=== PATIENT | female | born 1940 | race Caucasian/White ===

== ENCOUNTER 2016-04-12 13:09 | Outpatient (CLI) | payer MEDICARE, OTHER | END 2016-04-12 13:10 | disposition home or self-care (01) | DX: R42 Dizziness and giddiness (principal); J30.9 Allergic rhinitis, unspecified ==

== ENCOUNTER 2016-05-06 14:40 | Outpatient (CLI) | payer MEDICARE, OTHER | END 2016-05-06 14:41 | disposition home or self-care (01) | DX: G47.33 Obstructive sleep apnea (adult) (pediatric) (principal) | CPT/HCPCS: 99214; G0463 ==

== ENCOUNTER 2016-07-16 16:44 | Emergency (ER) | payer MEDICARE, OTHER ==
--- NOTE | 2016-07-16 17:20 | ED Physician Documentation ---
PD HPI FOCAL NEURO - Stated complaint Stated Complaint: STROKE LIKE SYMPTOMS - Chief complaint Chief Complaint: Neuro - History obtained from History obtained from: Patient - History of Present Illness Timing - onset: How many days ago (about 10 days, estimate as she does not recall an abrupt onset of the symptoms, so not sure the beginning date.) Timing - details: Gradual onset (she noted weakness with lifting her leg, sucha s going up steps or putting her pants on, but did not feel it weak for walking per se. She also felt some weakness in left arm but not to point of dropping items. Still able to use utensils.), Still present Time of symptom onset unknown: Time of onset unknown (about 10 days ago) Severity of deficit: Mild Weakness: Face, Arm, Leg, Left Associated symptoms: No: Headache, Syncope, Head injury, Neck pain Contributing factors: negative: Anticoagulated, Atrial fibrillation Baseline status: positive: A&OX3, ambulatory, indep Similar symptoms before: Has not had sx before Recently seen: Not recently seen Review of Systems Constitutional: denies: Fever, Chills Ears: denies: Drainage/discharge, Tinnitus/ringing Nose: denies: Rhinorrhea / runny nose, Congestion Throat: denies: Sore throat Cardiac: denies: Chest pain / pressure, Palpitations Respiratory: reports: Cough. denies: Dyspnea, Wheezing GI: denies: Abdominal Pain, Nausea, Vomiting, Diarrhea : denies: Dysuria, Frequency Skin: denies: Rash, Lesions Neurologic: reports: Focal weakness. denies: Generalized weakness, Altered mental status, Headache, Head injury PD PAST MEDICAL HISTORY - Past Medical History Past Medical History: Yes Cardiovascular: High cholesterol Neuro: Headache/migraine HEENT: Glaucoma Psych: Depression - Past Surgical History Past Surgical History: Yes HEENT: Cataracts - Present Medications Home Medications: Ambulatory Orders Medication Instructions Recorded Confirmed Cetirizine HCl [Zyrtec] 10 mg PO DAILY 10/22/12 07/16/16 Simvastatin [Zocor] 40 mg PO QPM 10/22/12 07/16/16 Zolpidem [Ambien] 5 mg PO HS 10/22/12 07/16/16 Escitalopram [Lexapro] 20 mg DAILY 07/16/16 07/16/16 Montelukast [Singulair] 10 mg DAILY 07/16/16 07/16/16 Tolterodine Tartrate [Tolterodine 4 mg PO DAILY 07/16/16 07/16/16 Tartrate ER] - Allergies Allergies/Adverse Reactions: Allergies Allergy/AdvReac Type Severity Reaction Status Date / Time iodine Allergy Respiratory Verified 10/22/12 13:36 milk Allergy Unknown Verified 07/16/16 16:53 shellfish derived Allergy Respiratory Verified 07/16/16 16:53 acetaminophen [From Percocet] AdvReac Emesis Verified 07/16/16 16:53 oxycodone HCl * AdvReac Emesis Verified 07/16/16 16:53 [From Percocet] - Social History Does the pt smoke?: No Smoking Status: Never smoker Does the pt drink ETOH?: Yes Does the pt have substance abuse?: No - Family History Family history: reports: Non contributory - POLST Patient has POLST: No PD ED PE NORMAL - Vitals Vital signs reviewed: Yes - General General: Alert and oriented X 3, No acute distress, Well developed/nourished - HEENT HEENT: Ears normal, Pharynx benign, Other (left sided mild facial weakness not involving forehead though. She can close left eye but not tightly. 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 ) - Neck Neck: Supple, no meningeal sign, No adenopathy - Cardiac Cardiac: RRR, No murmur - Respiratory Respiratory: Clear bilaterally - Abdomen Abdomen: Soft, Non tender - Back Back: No CVA TTP - Derm Derm: Normal color, Warm and dry - Extremities Extremities: No deformity, No tenderness to palpate, Normal ROM s pain, No edema , No calf tenderness / cord - Neuro Neuro: Alert and oriented X 3, No sensory deficit, Normal speech, Other (motor deficit lef face and some for pushing left leg, but seems normal for just simple dorsi/plantarflexion. ) NIHSS - Level of Consciousness Level of consciousness: (0) Alert, Keenly responsive LOC Questions: (0) Answers both Q's correct LOC Commands: (0) Performs both correctly - Gaze Best Gaze: (0) Normal - Visual Visual: (0) No loss - Facial Palsy Facial Palsy: (2) Partial paralysis - Motor Arms (both separate) Motor Arm (right): (0) No drift Motor Arm (left): (0) No drift - Motor Legs (both separate) Motor Leg (right): (0) No drift Motor Leg (left): (1) Drift - Limb Ataxia Limb Ataxia: (0) Absent - Sensory Sensory: (0) Normal - Best Language Best Language: (0) No aphasia - Dysarthria Dysarthria: (0) Normal - Extinction and Inattention (formally neg Extinction and inattention: (0) No abnormality - Total Score/Results Total Score/Result: 3 Results - Vitals Vitals: Vital Signs - 24 hr 07/16/16 07/16/16 07/16/16 16:46 17:30 19:09 Temperature 36.9 C Heart Rate 72 68 62 Respiratory 18 18 18 Rate Blood Pressure 139/73 H 125/74 122/67 O2 Saturation 98 99 99 Oxygen O2 Source Room air - Labs Labs: Laboratory Tests 07/16/16 07/16/16 07/16/16 17:45 17:45 17:45 WBC 7.9 RBC 4.73 Hgb 13.6 Hct 40.6 MCV 85.9 MCH 28.8 MCHC 33.5 RDW 13.5 Plt Count 184 MPV 8.7 Neut # 5.2 Lymph # 1.9 Turner # 0.5 Eos # 0.2 Baso # 0.0 Absolute Nucleated RBC 0.01 Nucleated RBCs 0.1 ESR 8 Sodium 141 Potassium 3.7 Chloride 104 Carbon Dioxide 30 Anion Gap 7.0 BUN 17 Creatinine 0.8 Estimated GFR (MDRD) 70 L Glucose 109 H Calcium 9.3 Magnesium 2.3 Total Bilirubin 0.3 AST 22 ALT 21 Alkaline Phosphatase 65 Total Creatine Kinase 142 Total Protein 6.6 L Albumin 4.0 Globulin 2.6 Albumin/Globulin Ratio 1.5 Lipase 27 - Rads (name of study) head CT Radiology: Prelim report reviewed (no acute findings. ) PD MEDICAL DECISION MAKING - ED course Complexity details: reviewed results, re-evaluated patient (her CT is okay and she is allergic to Iodine so could not get angio. I think MRI would be good to eval for lacunar infarcts, MS, other process, but not available right now. Given duration of her symptoms and normal CT, I feel she is stable enough, and she would prefer to go home. Shared decision process and came up with plan for her. ), considered differential (seems stroke-like. Howevethe CT does not show acute CVA, tumor, bleed. Good for now, but MRI is not available this time. Still consider smaller lacunar infarct or alternative such as MS. ), d/w patient Departure - Departure Disposition: 01 Home, Self Care Clinical Impression: Left-sided weakness Condition: Stable Record reviewed to determine appropriate education?: Yes Instructions: ED Weakness UKO, ED Stroke Completed Follow-Up: JOSE FENG [Primary Care Provider] - Comments: Drink adequate fluids. Take a baby aspirin 81 mg daily. Follow up with your Primary tomorrow morning 11:[address] scan and labs do not show obviously bad causes for the symptoms. However the symptoms would still be suspicious for more focal processes such as a small (lacunar) stroke or MS among other things. I feel an MRI would be good to evaluate for those. I would not expect your symptoms to change much in the next day or two (since have been the same for week or more). However, return to ER immediately if worsening or new symptoms. Otherwise follow up with your PMD tomorrow's appointment and see if she can arrange an outpatient MRI in the next few days. If not, can always return to the ER for re-assessment. Discharge Date/Time: 07/16/16 19:10
[2016-07-16] MEDS ORDERED: SODIUM CHLORIDE 0.9% 1,000 ML IV ONE (17:38)
[2016-07-16 17:53] LABS: BASOPHILS % (AUTO) 0.6 %; EOSINOPHILS # (AUTO) 0.2 10^3/uL (0.0-0.7); EOSINOPHILS % (AUTO) 2.4 %; HCT - HEMATOCRIT 40.6 % (37.0-47.0); HGB - HEMOGLOBIN 13.6 g/dL (12.0-16.0); LYMPHOCYTES # (AUTO) 1.9 10^3/uL (1.5-3.5); LYMPHOCYTES % (AUTO) 24.1 %; MEAN CORPUSCULAR HEMOGLOBIN 28.8 pg (27.0-31.0); MEAN CORPUSCULAR HGB CONC 33.5 g/dL (32.0-36.0); MEAN CORPUSCULAR VOLUME 85.9 fL (81.0-99.0); MEAN PLATELET VOLUME 8.7 fL (7.9-10.8); MONOCYTES # (AUTO) 0.5 10^3/uL (0.0-1.0); MONOCYTES % (AUTO) 6.5 %; NEUTROPHILS # (AUTO) 5.2 10^3/uL (1.5-6.6); NEUTROPHILS % (AUTO) 66.4 %; NUCLEATED RED BLOOD CELLS AUTO 0.1 /100WBC; RED BLOOD COUNT 4.73 10^6/uL (4.20-5.40); RED CELL DISTRIBUTION WIDTH 13.5 % (12.0-15.0); UNCORRECTED WHITE BLOOD COUNT 7.9 x10^3/uL; WHITE BLOOD COUNT 7.9 x10^3/uL (4.8-10.8)
[2016-07-16 18:04] LABS: ALBUMIN/GLOBULIN RATIO 1.5 (1.0-2.2); BILIRUBIN,TOTAL 0.3 mg/dL (0.2-1.0); CALCIUM 9.3 mg/dL (8.5-10.3); CREATININE 0.8 mg/dL (0.4-1.0); MAGNESIUM 2.3 mg/dL (1.7-2.8); POTASSIUM 3.7 mmol/L (3.5-5.0); TOTAL PROTEIN 6.6 g/dL (6.7-8.2)
--- NOTE | 2016-07-16 18:13 | CT Preliminary Report ---
Exam: CT Head W/O IMPRESSION: Negative nonenhanced head CT. [facility] SITE ID: [id number]
--- NOTE | 2016-07-16 18:16 | CT Report ---
EXAM: CT HEAD EXAM DATE: 07/16/2016 06:00 PM. CLINICAL HISTORY: Left weakness for 1-2 weeks. COMPARISON: 12/02/2012. TECHNIQUE: Multiaxial CT images were obtained from the foramen magnum to the vertex. IV contrast: Non e. Reformats: Coronal. In accordance with CT protocol optimization, one or more of the following dose reduction techniques w ere utilized for this exam: automated exposure control, adjustment of mA and/or KV based on patient s ize, or use of iterative reconstructive technique. FINDINGS: Parenchyma: No intraparenchymal hemorrhage. No evidence of mass, midline shift, or CT findings of inf arction. Tolentino-white differentiation is distinct. Extraaxial Spaces: Normal for age. No subdural or epidural collections identified. Ventricles: Normal in size and position. Sinuses: Imaged paranasal sinuses, orbits, and mastoids show no significant abnormality. Bones: No evidence of fracture or calvarial defect. Other: None. IMPRESSION: Negative nonenhanced head CT. [facility] Referring Provider Line: [phone] SITE ID: [id number]
[2016-07-16] MEDS ORDERED: ASPIRIN CHEW 81 MG TABLET PO STA (18:48)
[2016-07-16] MEDS ORDERED: ASPIRIN CHEW 81 MG TABLET ONE (19:02)
[2016-07-16 19:10] VITALS: BP 122/67
== END 2016-07-16 19:10 | disposition home or self-care (01) ==
LOC: ED 16:44
DX: M62.81 Muscle weakness (generalized) (principal); R29.810 Facial weakness; Z91.041 Radiographic dye allergy status
CPT/HCPCS: 36415; 70450; 80053; 82550; 83690; 83735; 85025; 85651; 93010; 99283; 99284; A9270

== ENCOUNTER 2016-07-22 09:32 | Outpatient (CLI) | payer MEDICARE, OTHER | END 2016-07-22 09:33 | disposition home or self-care (01) | LOC: SC 09:32 | PROVIDERS: ATTEND Nurse Practitioner Family | DX: G47.33 Obstructive sleep apnea (adult) (pediatric) (principal) | CPT/HCPCS: 99214; G0463; 99212 ==

== ENCOUNTER 2016-08-19 09:41 | Outpatient (CLI) | payer MEDICARE, OTHER ==
[2016-08-19] MEDS ORDERED: GADOBUTROL 7.5 MMOL/7.5 ML VIAL IVP ONE (10:49)
--- NOTE | 2016-08-19 13:31 | MRI Report ---
EXAM MRA BRAIN EXAM DATE: 08/19/2016 10:18 AM. CLINICAL HISTORY: Facial weakness, muscle weakness. Gradual onset of left-sided weakness. COMPARISON: MRI of the brain 08/19/2016. CT scan of the head 07/16/2016. MRI and MRA of the brain . TECHNIQUE: Multiplanar, multisequence MRA sequences of the brain were performed. Other: None. Post-pr ocessing: Multiplanar 3D MIP reconstructions. IV Contrast: None. FINDINGS: RIGHT Internal Carotid (ICA): No aneurysm, stenosis or anomaly. Middle Cerebral (MCA): No aneurysm, stenosis or anomaly. Anterior Cerebral (LARON): No aneurysm, stenosis or anomaly. Posterior Cerebral (COLOR ARTIST): No aneurysm, stenosis or anomaly. Near origin is seen. Posterior Communicating (P-COM): No aneurysm, stenosis or anomaly. Vertebral: Small in caliber. Terminates as the right PICA. No aneurysm, stenosis or anomaly in the vi sualized upper vertebral artery. LEFT Internal Carotid (ICA): No aneurysm, stenosis or anomaly. Middle Cerebral (MCA): No aneurysm, stenosis or anomaly. Anterior Cerebral (LARON): No aneurysm, stenosis or anomaly. Posterior Cerebral (COLOR ARTIST): No aneurysm, stenosis or anomaly. Near origin is seen. Posterior Communicating (P-COM): No aneurysm, stenosis or anomaly. Vertebral: Dominant, forming the basilar artery. No aneurysm, stenosis or anomaly in the visualized u pper vertebral artery. The PICA is unremarkable. MIDLINE Anterior Communicating (A-COM): No aneurysm, stenosis or anomaly. Basilar artery: No aneurysm, stenosis or anomaly. Small in caliber. P1 segment at the basilar tip dem onstrates moderate hypoplasia on the right and marked hypoplasia on the left. Bilateral AICA and supe rior cerebellar arteries are unremarkable. Other: None. IMPRESSION: 1. Unremarkable brain MRA. No stenoses or aneurysms. 2. Small caliber vertebrobasilar system. Prominent P-COM is seen bilaterally with near origin o f COLOR ARTIST. 3. Left vertebral artery is dominant forming the basilar artery. 4. Right vertebral artery is small in caliber terminating as the right PICA. [facility] Referring Provider Line: [phone] SITE ID: [id number]
--- NOTE | 2016-08-19 13:31 | MRI Report ---
EXAM: MRI BRAIN WITHOUT AND WITH CONTRAST EXAM DATE: 08/19/2016 10:53 AM. CLINICAL HISTORY: Facial weakness, muscle weakness. Gradual onset of left-sided weakness. COMPARISON: MRA of the brain 08/19/2016. CT scan of the head 07/16/2016, 12/02/2012. MRI of the brain 06/22/2006. TECHNIQUE: Multiplanar, multisequence T1-weighted and fluid-sensitive MR sequences of the brain were performed. Sequences optimized for routine evaluation. Other: None. Without and with IV Contrast: 6 c c Gadavist. FINDINGS: Brain Volume: Normal for age. Parenchyma/Dura: No masses, infarcts, or hemorrhage. Minimal punctate periventricular T2/FLAIR bright white matter signal is seen about the lateral ventricles with small focus in the left frontal zheng radiata. This is not an unexpected finding in a patient of age 76 years. No cortical signal abnormal ity. No abnormal enhancement. Ventricles/Cisterns: No hydrocephalus. No abnormal extra-axial fluid collection or hemorrhage. Subtle small focus of nodularity is seen along the subependymoma region laterally at the atrium of the left lateral ventricle. This likely is at the junction of the body and tail of the left caudate nucleus r ather than indicative of cortical heterotopia. This is unchanged. Orbits: Note is made of bilateral lens removal. The globes, optic nerve sheath complex, extraocular m uscles, and orbital fat are unremarkable. Sella turcica: The pituitary gland, cavernous sinuses, suprasellar cistern, and optic chiasm are unre markable. IAC: The internal auditory canals and cerebellopontine angle cisterns are symmetric and unremarkable. Vasculature: Normal signal flow void is seen in the major arterial structures at the skull base. The vertebrobasilar system is small in caliber. Left vertebral artery is dominant. The dural sinuses are patent and enhance normally. Sinuses: No sinusitis evident. Mucosal thickening is seen involving inferior right mastoid air cells. Bones: The skull is intact. Other: None. IMPRESSION: 1. Negative MRI of the brain without and with contrast. No acute abnormality. No infarct, mass, hemor rhage, or abnormal enhancement. 2. Minimal punctate foci of periventricular T2/FLAIR bright signal with small focus in the left front al zheng radiata. This is not significantly changed. Findings are nonspecific but can be seen second milan to small vessel ischemia. [facility] Referring Provider Line: [phone] SITE ID: [id number]
== END 2016-08-19 09:42 | disposition home or self-care (01) ==
LOC: DI 09:41
PROVIDERS: ATTEND Nurse Practitioner Family
DX: R29.810 Facial weakness (principal); M62.81 Muscle weakness (generalized)
CPT/HCPCS: 70544; 70553; A9585

== ENCOUNTER 2016-09-23 09:14 | Outpatient (CLI) | payer MEDICARE, OTHER | END 2016-09-23 09:15 | disposition home or self-care (01) | LOC: SC 09:14 | PROVIDERS: ATTEND Nurse Practitioner Family | DX: G47.33 Obstructive sleep apnea (adult) (pediatric) (principal) | CPT/HCPCS: 99214; G0463; 99212 ==

== ENCOUNTER 2016-11-26 10:18 | Outpatient (CLI) | payer MEDICARE, OTHER | END 2016-11-26 10:19 | disposition home or self-care (01) | LOC: SC 10:18 | PROVIDERS: ATTEND Nurse Practitioner Family | DX: G47.33 Obstructive sleep apnea (adult) (pediatric) (principal) | CPT/HCPCS: 99214; G0463; 99212 ==

== ENCOUNTER 2017-02-04 13:06 | Outpatient (CLI) | payer MEDICARE, OTHER | END 2017-02-04 13:07 | disposition home or self-care (01) | LOC: SC 13:06 | PROVIDERS: ATTEND Nurse Practitioner Family | DX: G47.33 Obstructive sleep apnea (adult) (pediatric) (principal) | CPT/HCPCS: 99214; G0463; 99212 ==

== ENCOUNTER 2017-04-07 15:06 | Outpatient (CLI) | payer MEDICARE, OTHER | END 2017-04-07 15:07 | disposition home or self-care (01) | LOC: SC 15:06 | PROVIDERS: ATTEND Nurse Practitioner Family | DX: G47.33 Obstructive sleep apnea (adult) (pediatric) (principal) | CPT/HCPCS: 99214; G0463; 99212 ==

== ENCOUNTER 2017-04-28 10:12 | Outpatient (CLI) | payer MEDICARE, OTHER ==
--- NOTE | 2017-04-29 15:19 | Mammography Report ---
DIGITAL SCREENING MAMMOGRAM: 04/28/2017 CLINICAL INDICATION: A 77-year-old, for screening. COMPARISON: Films from [place], [place] dated 03/18/2016, 03/14/2015, 03/2014, 03/09/2013, 04/29/2012, 03/21/2010, 03/23/2009, 03/19/2009. TECHNIQUE: Routine CC and MLO projections were obtained of the breasts. FINDINGS: The breasts demonstrate heterogeneously dense fibroglandular parenchyma bilaterally. Coarse, typically benign calcifications are present. No suspicious masses, clustered microcalcifications, or regions of architectural distortion are identified. IMPRESSION: BENIGN FINDINGS. RECOMMENDATION: ROUTINE ANNUAL SCREENING UNLESS OTHERWISE CLINICALLY INDICATED. BIRADS CATEGORY 2-BENIGN FINDINGS. STANDARD QUALIFYING STATEMENTS: 1. This examination was reviewed with the aid of Computer-Aided Detection (CAD) . 2. A negative or benign imaging report should not delay biopsy if clinically suspicious findings are present. Consider surgical consultation if warranted. More than 5 % of cancers are not identified by imaging. 3. Dense breasts may obscure an underlying neoplasm. TD: 04/29/2017 15:18 DARA
== END 2017-04-28 10:13 | disposition home or self-care (01) ==
LOC: DI.N 10:12
PROVIDERS: ATTEND Physician Assistant Medical
DX: Z12.31 Encounter for screening mammogram for malignant neoplasm of breast (principal)
CPT/HCPCS: 77067

== ENCOUNTER 2017-07-09 11:06 | Outpatient (CLI) | payer MEDICARE, OTHER | END 2017-07-09 11:07 | disposition home or self-care (01) | LOC: SC 11:06 | PROVIDERS: ATTEND Nurse Practitioner Family | DX: G47.33 Obstructive sleep apnea (adult) (pediatric) (principal); F32.9 Major depressive disorder, single episode, unspecified; I67.9 Cerebrovascular disease, unspecified | CPT/HCPCS: 99214; G0463; 99212 ==

== ENCOUNTER 2017-08-20 08:00 | Outpatient (CLI) | payer MEDICARE, OTHER ==
[2017-08-20 12:19] LABS: BASOPHILS % (AUTO) 0.9 %; EOSINOPHILS # (AUTO) 0.3 10^3/uL (0.0-0.7); EOSINOPHILS % (AUTO) 4.9 %; HGB - HEMOGLOBIN 14.1 g/dL (12.0-16.0); LYMPHOCYTES # (AUTO) 1.9 10^3/uL (1.5-3.5); LYMPHOCYTES % (AUTO) 32.1 %; MEAN CORPUSCULAR HEMOGLOBIN 29.1 pg (27.0-31.0); MEAN CORPUSCULAR VOLUME 88.2 fL (81.0-99.0); MEAN PLATELET VOLUME 8.6 fL (7.9-10.8); MONOCYTES # (AUTO) 0.4 10^3/uL (0.0-1.0); MONOCYTES % (AUTO) 7.4 %; NEUTROPHILS # (AUTO) 3.2 10^3/uL (1.5-6.6); NEUTROPHILS % (AUTO) 54.7 %; PLT - PLATELET COUNT 230 10^3/uL (130-450); RED BLOOD COUNT 4.87 10^6/uL (4.20-5.40); RED CELL DISTRIBUTION WIDTH 13.5 % (12.0-15.0); WHITE BLOOD COUNT 5.8 x10^3/uL (4.8-10.8)
[2017-08-20 12:56] LABS: ALBUMIN 3.7 g/dL (3.2-5.5); ALBUMIN/GLOBULIN RATIO 1.1 (1.0-2.2); ALKALINE PHOSPHATASE 70 IU/L (42-121); ALT ALANINE AMINOTRANSFERASE 35 IU/L (10-60); AST ASPARTATE AMINOTRANSFERASE 30 IU/L (10-42); BILIRUBIN,TOTAL 0.9 mg/dL (0.2-1.0); BUN - BLOOD UREA NITROGEN 19 mg/dL (6-20); CALCIUM 9.2 mg/dL (8.5-10.3); CARBON DIOXIDE - CO2 29 mmol/L (21-32); CHLORIDE 104 mmol/L (101-111); CHOL/HDL RATIO 2.7 (<4.4); CHOLESTEROL 176 mg/dL; CREATININE 0.9 mg/dL (0.4-1.0); GFR - MDRD 61 (>89); GLUCOSE 100 mg/dL (70-100); HDL CHOLESTEROL 66 mg/dL; LDL CHOLESTEROL,CALCULATED 92 mg/dL; LDL/HDL RATIO 1.4 (<4.4); SODIUM 140 mmol/L (135-145); TOTAL PROTEIN 7.1 g/dL (6.7-8.2); VLDL CHOLESTEROL 18 mg/dL
== END 2017-08-20 08:01 | disposition home or self-care (01) ==
LOC: LAB.WCP 08:00
PROVIDERS: ATTEND Physician Assistant Medical
DX: E78.5 Hyperlipidemia, unspecified (principal); J30.9 Allergic rhinitis, unspecified
CPT/HCPCS: 36415; 80053; 80061; 83721; 85025

== ENCOUNTER 2017-11-02 17:40 | Emergency (ER) | payer MEDICARE, OTHER ==
--- NOTE | 2017-11-02 20:39 | ED Physician Documentation ---
PD HPI OPHTHO - Stated complaint Stated Complaint: SUPER GLUE EYE - Chief complaint Chief Complaint: Heent - History obtained from History obtained from: Patient - History of Present Illness Timing - onset: Enter time (approximately 16:00-17:00), Today Timing - duration: Hours Timing - details: Abrupt onset Pain level max: 4 Pain level now: 2 Location: Left Quality / character: Burning Contributing factors: Other (chemical exposure (see below)) Recently seen: Not recently seen - Additional information Additional information: patient accidentally instilled one drop of cyanoacrylate ("Crazy Glue", per patient) into her left eye thinking they were her usual prescribed eye drops. This was at approximately 4-5 PM today. Unable to open eye since then. Review of Systems Eyes: reports: Irritation, Other (unable to open left eye.) PD PAST MEDICAL HISTORY - Past Medical History Past Medical History: Yes Cardiovascular: High cholesterol HEENT: Glaucoma Psych: Depression - Past Surgical History Past Surgical History: Yes HEENT: Cataracts - Present Medications Home Medications: Ambulatory Orders Medication Instructions Recorded Confirmed Cetirizine HCl [Zyrtec] 10 mg PO DAILY 10/22/12 07/16/16 Simvastatin [Zocor] 40 mg PO QPM 10/22/12 07/16/16 Zolpidem [Ambien] 5 mg PO HS 10/22/12 07/16/16 Escitalopram [Lexapro] 20 mg DAILY 07/16/16 07/16/16 Montelukast [Singulair] 10 mg DAILY 07/16/16 07/16/16 Tolterodine Tartrate [Tolterodine 4 mg PO DAILY 07/16/16 07/16/16 Tartrate ER] Erythromycin Base [Erythromycin 1 film LEFTEYE TID #1 oint...g. 11/02/17 Ophthalmic Ointment] - Allergies Allergies/Adverse Reactions: Allergies Allergy/AdvReac Type Severity Reaction Status Date / Time iodine Allergy Respiratory Verified 11/02/17 17:47 milk Allergy Unknown Verified 11/02/17 17:47 shellfish derived Allergy Respiratory Verified 11/02/17 17:47 acetaminophen [From Percocet] AdvReac Emesis Verified 11/02/17 17:47 oxycodone HCl * AdvReac Emesis Verified 11/02/17 17:47 [From Percocet] - Social History Does the pt smoke?: No Smoking Status: Never smoker Does the pt drink ETOH?: Yes Does the pt have substance abuse?: No - Immunizations Immunizations are current?: Yes - POLST Patient has POLST: No PD ED PE NORMAL - Vitals Vital signs reviewed: Yes - General General: Alert and oriented X 3, Well developed/nourished, Other (appears to be in mild discomfort; anxious and mild painful discomfort) - HEENT HEENT: Other (left eye glued shut; unable to open even when I apply traction.) PD ED PE EXPANDED - HEENT HEENT: Other (initially, the left eye is sealed shut, but able to be opened after application of erythromycin ointment (see below)) HEENT Visual: 1 - abrasion (fluorescein uptake) - Eyes Eyes: PERRL, No eyelid FB (everted), Injected conj/sclera. No: Exudate, Subconj hemorrhage, Corneal ulcer Results - Vitals Vitals: Vital Signs - 24 hr 11/02/17 11/02/17 17:44 22:45 Temperature 36.5 C 36.6 C Heart Rate 78 74 Respiratory 16 16 Rate Blood Pressure 166/94 H 130/78 O2 Saturation 98 98 Oxygen O2 Source Room air PD MEDICAL DECISION MAKING - ED course Complexity details: re-evaluated patient, considered differential, d/w patient ED course: Erythromycin ointment applied to the left eyelids. After approximately 30-40 minutes, I reexamined patient and with gentle traction, I was able to open the eye. I then instilled proparacaine and was able to remove a film of solidified tissue adhesive that remained adherent to the margin of the upper lid. There remains some glue in the lashes of the upper lid. Subsequently, fluorescein stain reveals large corneal abrasion as noted above. - Sepsis Event Vital Signs: Vital Signs - 24 hr 11/02/17 11/02/17 17:44 22:45 Temperature 36.5 C 36.6 C Heart Rate 78 74 Respiratory 16 16 Rate Blood Pressure 166/94 H 130/78 O2 Saturation 98 98 Oxygen O2 Source Room air Departure - Departure Disposition: 01 Home, Self Care Clinical Impression: Chemical exposure of eye Condition: Good Instructions: ED Eye Injury Corneal Abrasion, ED Chemical Conjunctivitis Follow-Up: Dino Mccollum MD [Provider Admit Priv/Credential] - (Call in the morning to arrange for immediate follow-up appointment for reevaluation) Prescriptions: Erythromycin Base [Erythromycin Ophthalmic Ointment] 1 film LEFTEYE TID #1 oint...g. Discharge Date/Time: 11/02/17 22:48
[2017-11-02] MEDS ORDERED: LORazepam 0.5 MG TABLET PO STA (20:52)
[2017-11-02] MEDS ORDERED: ERYTHROMYCIN OPHTH OINT 1 GM TUBE LEFTEYE STA ×2 (20:52→22:35)
[2017-11-02] MEDS ORDERED: PROPARACAINE 0.5% OPHTH DROPS 15 ML LEFTEYE STA (21:42)
[2017-11-02 22:48] VITALS: BP 130/78
== END 2017-11-02 22:48 | disposition home or self-care (01) ==
LOC: ED 17:40
DX: T15.02XA Foreign body in cornea, left eye, initial encounter (principal); T15.12XA Foreign body in conjunctival sac, left eye, initial encounter; Z77.098 Contact with and (suspected) exposure to other hazardous, chiefly nonmedicinal, chemicals; X58.XXXA Exposure to other specified factors, initial encounter; Y93.89 Activity, other specified
CPT/HCPCS: 99283; A9270; J3490

== ENCOUNTER 2017-12-30 13:31 | Outpatient (CLI) | payer MEDICARE, OTHER | END 2017-12-30 13:32 | disposition home or self-care (01) | LOC: SC 13:31 | PROVIDERS: ATTEND Nurse Practitioner Family | DX: G47.33 Obstructive sleep apnea (adult) (pediatric) (principal) | CPT/HCPCS: 99214; G0463; 99212 ==

== ENCOUNTER 2018-01-15 14:41 | Outpatient (CLI) | payer MEDICARE, OTHER ==
--- NOTE | 2018-01-16 14:44 | MRI Report ---
Reason: DEGENERATIVE DISC DISEASE,LUMBAR SPINE Procedure Date: 01/15/2018 Accession Number: [id number] / [id number] Procedure: MRI - Lumbar Spine W/O CPT Code: FULL RESULT: EXAM: MRI LUMBAR SPINE WITHOUT CONTRAST EXAM DATE: 01/15/2018 03:17 PM. CLINICAL HISTORY: Degenerative disk disease, lumbar spine. COMPARISON: None. TECHNIQUE: Multiplanar, multisequence T1-weighted and fluid-sensitive sequences of the lumbar spine from T12 to S1 without contrast. Other: Sagittal field of view extends to the T7 level. FINDINGS: Spinal Canal: The conus terminates at T12-L1. No cord or cauda equina compression. Alignment: There is a scoliosis which cannot be measured as there are no coronal images or prior x-rays. The scoliosis appears centered on the thoracolumbar junction. There is a 4 mm grade 1 retrolisthesis at L4-L5. There is a 2 mm grade 1 retrolisthesis at L1-L2. Bone Marrow: Five sti-ctw-egavtuw lumbar vertebral bodies are assumed. There is Modic type I change at the L5-S1 level. There is mixed Modic type I and II change at the L1-L2 and L4-L5 levels. Disk Levels/Facets: There is a broad-based posterior disk osteophyte complex at T10-T11 causing mild canal narrowing. The T11-T12 and T12-L1 levels appear unremarkable. Disk desiccation with endplate osteophyte formation is also visible at T7-T8, T8-T9 and T9-T10. L1-L2: There is disk desiccation and loss of disk height. There are circumferential osteophytes and mild facet and also arthritis. The findings cause mild canal narrowing. There is mild bilateral foraminal narrowing. L2-L3: There is disk desiccation and loss of disk height. There are circumferential osteophytes with moderate facet joint osteoarthritis to some ligamentum flavum redundancy causing mild canal narrowing. There is mild bilateral foraminal narrowing. L3-L4: There is a broad-based posterior disk bulge with facet joint osteoarthritis causing mild canal narrowing. There is mild bilateral foraminal narrowing. L4-L5: There are circumferential osteophytes with a central disk protrusion and moderate facet joint osteoarthritis causing mild canal narrowing. There is mild left and moderate right foraminal narrowing. Endplate and facet joint osteophytes contact the right L4 nerve root within the neural foramen. L5-S1: There is severe disk desiccation and loss of disk height. There are circumferential osteophytes with mild facet joint osteoarthritis. The findings cause mild canal narrowing with moderate bilateral foraminal narrowing. Musculature: Normal. No edema or fatty atrophy. Other: The partially visualized retroperitoneum is unremarkable. IMPRESSION: 1. Moderate degenerative change of the lumbar spine. There is a scoliosis of the thoracolumbar junction which cannot be measured without coronal images or prior plain x-ray. 2. Grade 1 retrolisthesis at L4-L5, and L1-L2. 3. Moderate degenerative change of the lower thoracic spine worst at T10-T11. 4. At L1-L2, L3-L4 there is mild canal and foraminal narrowing. 5. L4-L5: Mild canal narrowing with mild left and moderate right foraminal narrowing. Endplate and facet joint osteophytes contact the right L4 nerve root. 6. L5-S1: Mild canal and moderate bilateral foraminal narrowing. Comment: The following findings are so common in adults without low back pain that while we report their presence, they must be interpreted with caution and in the context of the clinical situation. (Reference Viet et al, Spine 2001) Prevalence of findings in patients without low back pain: Disk degeneration (any evidence): 92% Disk desiccation/T2 signal loss: 83% Disk height loss: 56% Disk bulge: 64% Disk protrusion: 32% Annular tear/high intensity zone: 38% [facility]
== END 2018-01-15 14:42 | disposition home or self-care (01) ==
LOC: DI 14:41
PROVIDERS: ATTEND Physician Assistant Medical
DX: M51.36 Other intervertebral disc degeneration, lumbar region (principal); M47.9 Spondylosis, unspecified; M43.16 Spondylolisthesis, lumbar region; M51.34 Other intervertebral disc degeneration, thoracic region; M51.26 Other intervertebral disc displacement, lumbar region; M51.37 Other intervertebral disc degeneration, lumbosacral region; M41.9 Scoliosis, unspecified; M48.061 Spinal stenosis, lumbar region without neurogenic claudication; M48.07 Spinal stenosis, lumbosacral region
CPT/HCPCS: 72148

== ENCOUNTER 2018-02-10 10:32 | Outpatient (CLI) | payer MEDICARE, OTHER | END 2018-02-10 10:33 | disposition home or self-care (01) | LOC: SC 10:32 | PROVIDERS: ATTEND Nurse Practitioner Family | DX: G47.33 Obstructive sleep apnea (adult) (pediatric) (principal) | CPT/HCPCS: 99214; G0463; 99212 ==

== ENCOUNTER 2018-03-23 12:46 | Outpatient (CLI) | payer MEDICARE, OTHER | END 2018-03-23 12:47 | disposition home or self-care (01) | LOC: SC 12:46 | PROVIDERS: ATTEND Nurse Practitioner Family | DX: G47.33 Obstructive sleep apnea (adult) (pediatric) (principal) | CPT/HCPCS: 99214; G0463; 99212 ==

== ENCOUNTER 2018-05-18 08:00 | Outpatient (CLI) | payer MEDICARE, OTHER | END 2018-05-18 23:59 | disposition home or self-care (01) | LOC: LAB.WCP 08:00 | PROVIDERS: ATTEND Family Medicine | DX: J02.9 Acute pharyngitis, unspecified (principal); J45.909 Unspecified asthma, uncomplicated ==

== ENCOUNTER 2018-05-24 15:39 | Outpatient (CLI) | payer MEDICARE, OTHER ==
--- NOTE | 2018-05-25 09:08 | XRAY Report ---
Reason: COUGH Procedure Date: 05/24/2018 Accession Number: [id number] / [id number] Procedure: WCP - Chest 2 View X-Ray CPT Code: 20755 FULL RESULT: EXAM: CHEST RADIOGRAPHY EXAM DATE: 05/24/2018 03:51 PM. CLINICAL HISTORY: COUGH. COMPARISON: None. TECHNIQUE: 2 views. FINDINGS: Lungs/Pleura: No focal opacities evident. No pleural effusion. No pneumothorax. Normal volumes. Mediastinum: Heart and mediastinal contours are unremarkable. Other: None. IMPRESSION: Normal 2-view chest radiography. [facility]
== END 2018-05-24 15:40 | disposition home or self-care (01) ==
LOC: DI.WCP 15:39
PROVIDERS: ATTEND Family Medicine
DX: R05 Cough (principal)
CPT/HCPCS: 71046

== ENCOUNTER 2018-06-22 10:28 | Outpatient (CLI) | payer MEDICARE, OTHER | END 2018-06-22 10:29 | disposition home or self-care (01) | LOC: SC 10:28 | PROVIDERS: ATTEND Nurse Practitioner Family | DX: G47.33 Obstructive sleep apnea (adult) (pediatric) (principal); G47.00 Insomnia, unspecified | CPT/HCPCS: 99214; G0463; 99212 ==

== ENCOUNTER 2018-08-04 08:00 | Outpatient (CLI) | payer MEDICARE, OTHER ==
[2018-08-04 12:53] LABS: BASOPHILS # (AUTO) 0.1 10^3/uL (0.0-0.1); BASOPHILS % (AUTO) 0.8 %; EOSINOPHILS # (AUTO) 0.4 10^3/uL (0.0-0.7); HGB - HEMOGLOBIN 13.3 g/dL (12.0-16.0); LYMPHOCYTES # (AUTO) 1.5 10^3/uL (1.5-3.5); LYMPHOCYTES % (AUTO) 16.8 %; MEAN CORPUSCULAR HEMOGLOBIN 28.2 pg (27.0-31.0); MEAN CORPUSCULAR HGB CONC 31.2 g/dL (32.0-36.0); MEAN CORPUSCULAR VOLUME 90.3 fL (81.0-99.0); MEAN PLATELET VOLUME 11.2 fL (7.9-10.8); MONOCYTES # (AUTO) 0.5 10^3/uL (0.0-1.0); MONOCYTES % (AUTO) 5.6 %; NEUTROPHILS # (AUTO) 6.4 10^3/uL (1.5-6.6); NEUTROPHILS % (AUTO) 72.7 %; PLT - PLATELET COUNT 200 10^3/uL (130-450); RED BLOOD COUNT 4.72 10^6/uL (4.20-5.40); WHITE BLOOD COUNT 8.8 x10^3/uL (4.8-10.8)
[2018-08-04 13:38] LABS: ALBUMIN/GLOBULIN RATIO 1.3 (1.0-2.2); ALKALINE PHOSPHATASE 63 IU/L (42-121); ALT ALANINE AMINOTRANSFERASE 17 IU/L (10-60); AST ASPARTATE AMINOTRANSFERASE 20 IU/L (10-42); BILIRUBIN,TOTAL 0.6 mg/dL (0.2-1.0); BUN - BLOOD UREA NITROGEN 26 mg/dL (6-20); CALCIUM 9.2 mg/dL (8.5-10.3); CARBON DIOXIDE - CO2 28 mmol/L (21-32); CHLORIDE 106 mmol/L (101-111); CHOL/HDL RATIO 3.1 (<4.4); CHOLESTEROL 191 mg/dL; CREATININE 0.7 mg/dL (0.4-1.0); GFR - MDRD 81 (>89); GLUCOSE 103 mg/dL (70-100); HDL CHOLESTEROL 61 mg/dL; LDL CHOLESTEROL,CALCULATED 116 mg/dL; LDL/HDL RATIO 1.9 (<4.4); SODIUM 143 mmol/L (135-145); VLDL CHOLESTEROL 14 mg/dL
== END 2018-08-04 23:59 | disposition home or self-care (01) ==
LOC: LAB.WCP 08:00
PROVIDERS: ATTEND Physician Assistant Medical
DX: E78.5 Hyperlipidemia, unspecified (principal); J30.9 Allergic rhinitis, unspecified
CPT/HCPCS: 36415; 80053; 80061; 83721; 85025

== ENCOUNTER 2018-08-31 10:22 | Outpatient (CLI) | payer MEDICARE, OTHER | END 2018-08-31 10:23 | disposition home or self-care (01) | LOC: SC 10:22 | PROVIDERS: ATTEND Nurse Practitioner Family | DX: G47.33 Obstructive sleep apnea (adult) (pediatric) (principal) | CPT/HCPCS: 99215; G0463; 99212 ==

== ENCOUNTER 2018-09-06 08:00 | Outpatient (CLI) | payer MEDICARE, OTHER | END 2018-09-06 08:01 | disposition home or self-care (01) | LOC: LAB.WCP 08:00 | PROVIDERS: ATTEND Physician Assistant Medical | DX: R41.3 Other amnesia (principal) | CPT/HCPCS: 36415; 82607 ==

== ENCOUNTER 2018-09-10 15:14 | Outpatient (CLI) | payer MEDICARE, OTHER ==
[2018-09-10] MEDS ORDERED: GADOBUTROL 10 MMOL/10 ML VIAL IVP ONE (17:31)
--- NOTE | 2018-09-11 03:02 | MRI Report ---
Reason: MEMORY LOSS Procedure Date: 09/10/2018 Accession Number: [id number] / [id number] Procedure: MRI - Brain W/WO CPT Code: FULL RESULT: EXAM: MRI BRAIN WITHOUT AND WITH CONTRAST EXAM DATE: 09/10/2018 05:12 PM. CLINICAL HISTORY: Memory loss. COMPARISON: BRAIN W/WO 08/19/2016 10:15 AM. TECHNIQUE: Multiplanar, multisequence T1-weighted and fluid-sensitive MR sequences of the brain were performed. Sequences optimized for routine evaluation. Other: None. IV Contrast: 6 mL of Gadavist. FINDINGS: Brain Volume: There is mild generalized cerebral volume loss, in keeping with the patient's age. Parenchyma: No acute hemorrhage, mass, or infarct. Mild periventricular T2 hyperintensity is stable and likely reflects chronic microvascular ischemic changes. No abnormal enhancement. Ventricles/Cisterns: No hydrocephalus. No abnormal extra-axial fluid collection or hemorrhage. Orbits: Postsurgical changes from cataract extractions are noted in the globes. Sella Turcica: The pituitary gland, cavernous sinuses, suprasellar cistern and optic chiasm are unremarkable. IAC: Symmetric and unremarkable. Vasculature: Normal signal flow void is seen in the major arterial structures at the skull base. The dural sinuses are patent and enhance normally. Sinuses: No acute sinus disease. Bones: No focal pathologic appearing marrow signal changes. IMPRESSION: 1. No acute infarct, intracranial mass lesion, or hemorrhage. 2. Stable mild senescent changes compared to the brain MRI from 08/19/2016 [facility]
== END 2018-09-10 15:15 | disposition home or self-care (01) ==
LOC: DI 15:14
PROVIDERS: ATTEND Physician Assistant Medical
DX: R41.3 Other amnesia (principal)
CPT/HCPCS: 70553

== ENCOUNTER 2018-10-28 10:39 | Outpatient (CLI) | payer MEDICARE, OTHER ==
[2018-10-28 11:52] VITALS: BP 120/70
--- NOTE | 2018-10-28 11:52 | SLEEP CARE CONSULTATION ---
Information from patient questionnaire entered by Linda Colon. I have reviewed and concur with the information entered by Linda Colon. This document represents the service I personally performed and the decisions made by me, Marilia Zapata, RN, MSN, PATIENT SERVICES CLERK. History of Present Illness Previous diagnosis: Severe, Obstructive Sleep Apnea-Hypopnea Syndrome AHI: 42.7 Reason for CPAP/BiPAP follow up: other (2 month ) Equipment type: CPAP Equipment obtained from: [employer] Mask style: Nasal (wisp) Mask brand: Respironics Backup mask available: Yes Last cushion change: no cushion change since mask given at last visit CPAP Compliance Data - Data Reviewed with Patient Average duration of nightly device use: 6.72 Compliance rate %: 78.3 (60 days) Current pressure setting (cmH2O): 8-11 Humidity settin Heated hose settin Average residual AHI: 5.1 Average large leak: 1.5 hours Subjective Patient concerns: reports: nasal congestion (mild not bothering CPAP use ), dry mouth, nose, throat (01/09 due to detrol - no worse with CPAP), other (patient th inks the cushion is too large or it needs to changed ). denies: aerophagia, mask discomfort, air blowing in eyes, mask leak noise, condensation in mask/hose, epistaxis Observed to snore while using device: No Current pressure setting perceived as: comfortable On therapy, patient: reports: sleeping better, awakening more refreshed, being more awake and alert during the day, more rested overall. denies: drowsiness while driving Initial [place] Sleepiness Scale score: 8 Current [place] Sleepiness Scale score: 8 Allergies and Home Medications Known drug allergies: Yes Home medication list reviewed: Yes Allergy and home medication list: Medication Name (generic/name brand) Strength & Dosage Detrol LA 4mg cap one daily in the morning Sertraline HCL 100mg tab one daily Simvastatin 40mg tab one daily Singulair 10mg tab one daily Timolol Maleate 0.5% Ophthalmic Solution One drop each eye daily Latanoprost 0.005% Ophthalmic Solution One drop each eye daily at bedtime Zolpidem Tartrate 5mg tab one at bedtime as need Meloxicam 7.5mg tab one twice daily with food, prn Melatonin 5mg tab 2 daily at bedtime, prn Zyrtec (Cetirizine) 10mg tab one daily as needed Ipratropium One spray each nostril daily, prn Calcium 600mg tab one daily Aspirin EC 81mg tab one daily with food Allergy List Quinine Percocet Iodine Shellfish Review of Systems Review of systems same as previous: Yes Physical Exam Blood Pressure: 120/70 Cuff size: regular Heart Rate: 68 O2 Saturation: 97 Height: 4 ft 11 in Weight (kg): 129 lb 12.8 oz Body Mass Index: 26.2 BMI Classification: Overweight Impression and Plan 1. Obstructive Sleep Apnea-Hypopnea Syndrome,severe, with good treatment compliance and good apnea control. On CPAP therapy, the patient has better sleep quality and is more rested overall. The residual AHI reduced to the lowest yet of 5.1 with new mask and better control of mask leaks. Mask Leaks have increased the past month as she needs to update cushion. She thought it was too large but I showed it was the s/m fitted. I explained that it has just gotten floppy with use. Also her headgear was misaligned and I corrected but I will have RT come in and measure and [place] with pen for better fitting with CPAP pressure on. For oral dryness that is present 24/, I advised her to increase the humidity for more moisture benefit. She uses oral dryness products during waking hours. Patient's apnea severity and rationale for treatment to reduce apnea, improve sleep quality and reduce cardiovascular and cerebrovascular events was reviewed. I also reviewed the benefit of consistent device use of CPAPfor her hypertension, depression/anxiety. It also benefits her environmental allergies due to breathing filtered humidified air at night. * Continue CPAP pressure at [id number] * mask refitting with pressure on * update mask cushion * increase humidity * Notify me if snoring with mask or feeling that the pressure is too much or too little * Attempt to lose weight * Return for follow up in 6 months , or sooner if concerns arise I spent 100% of this 35 minute visit face to face with the patient with greater than 50% of this was spent time counseling the patient and coordination of care. Extra time take for communication as patient forgot to put in her hearing aids.
== END 2018-10-28 10:40 | disposition home or self-care (01) ==
LOC: SC 10:39
PROVIDERS: ATTEND Nurse Practitioner Family
DX: G47.33 Obstructive sleep apnea (adult) (pediatric) (principal)
CPT/HCPCS: 99214; G0463; 99212

== ENCOUNTER 2018-11-24 08:00 | Outpatient (CLI) | payer MEDICARE, OTHER | END 2018-11-24 23:59 | disposition home or self-care (01) | LOC: LAB.R 08:00 | PROVIDERS: ATTEND Physician Assistant Medical | DX: L02.91 Cutaneous abscess, unspecified (principal) | CPT/HCPCS: 87070; 87077; 87205 ==

== ENCOUNTER 2018-11-26 11:03 | Outpatient (CLI) | payer MEDICARE, OTHER ==
--- NOTE | 2018-11-29 10:05 | Mammography Report ---
Reason: SCREENING MAMMO Procedure Date: 11/26/2018 Accession Number: [id number] / [id number] Procedure: MGN - Screening Mammo Dig Bilat CPT Code: FULL RESULT: EXAM: Screening Mammo Dig Bilat DATE: 11/26/2018 11:23 AM CLINICAL HISTORY: Postmenopausal female for routine screening. TECHNIQUE: (B) - Bilateral CC and MLO views were obtained. COMPARISON: 04/28/2017, 03/18/2016, 03/14/2015, 03/13/2014, 03/09/2013, 04/29/2012, 03/21/2010, 03/23/2009 and 03/19/2009. PARENCHYMAL PATTERN: (D) - The breasts demonstrate heterogeneously dense fibroglandular parenchyma bilaterally. FINDINGS: There has been no significant interval change. A few calcifications in the inferior left breast are unchanged. There are no new suspicious masses, calcifications, skin thickening, or areas of distortion. IMPRESSION: Negative examination. BI-RADS category 1. RECOMMENDATION: (ANNUAL) - Recommend routine annual screening mammography. BI-RADS CATEGORY: (1) - Negative. STANDARD QUALIFYING STATEMENTS: 1. This examination was not reviewed with the aid of Computer-Aided Detection (CAD). 2. A negative or benign imaging report should not preclude biopsy if clinically suspicious findings are present. 3. Dense breasts may obscure an underlying neoplasm. 4. This examination was reviewed without the aid of 3D breast imaging (tomosynthesis).
== END 2018-11-26 11:04 | disposition home or self-care (01) ==
LOC: DI.N 11:03
DX: Z12.31 Encounter for screening mammogram for malignant neoplasm of breast (principal)
CPT/HCPCS: 77067

== ENCOUNTER 2019-01-10 10:18 | Emergency (ER) | payer MEDICARE, OTHER ==
--- NOTE | 2019-01-10 10:33 | ED Physician Documentation ---
PD HPI ABD PAIN - Stated complaint Stated Complaint: LT SIDE UPPER LEG PX - Chief complaint Chief Complaint: Ext Problem - History obtained from History obtained from: Patient - History of Present Illness Timing - onset: How many days ago (3) Timing - duration: Days (3) Timing - details: Gradual onset Pain level max: 7 Pain level now: 5 Quality: Pain Location: LLQ Worsened by: Moving Associated symptoms: Dizzy, Near syncope / syncope. No: Fever, Nausea, Vomiting, Diarrhea, Dysuria, Hematuria Recently seen: Not recently seen - Additional information Additional information: This is a 78-year-old woman who presents with complaints that she is having pain right in the left lower quadrant of the abdomen and groin area since the past 3 days and is much more severe when she walks. She says is a constant underlying pain of about a 4-5 out of 10 but it gets as high as a 7 out of 10 when she is moving around. She has felt feverish but had no chills or sweats. No nausea vomiting or diarrhea. She has some urinary hesitancy but no burning or blood seen. This pain feels a little bit like her nerve pain that radiates down into her left leg. She denies any back pain. No prior abdominal surgeries and no hip history of diverticulitis. Patient has been feeling very lightheaded whenever she stands up for the past 6 months but has not blacked out. She does not have any headaches. She is not on blood pressure medicines. She has not been coughing had palpitations or chest pain. Review of Systems Constitutional: denies: Fever Eyes: denies: Loss of vision Ears: denies: Ear pain Nose: denies: Congestion Throat: denies: Sore throat Cardiac: denies: Chest pain / pressure, Palpitations, Pedal edema Respiratory: denies: Dyspnea, Cough GI: denies: Abdominal Pain, Nausea, Vomiting, Diarrhea : reports: Hesitancy. denies: Dysuria, Frequency, Hematuria Skin: denies: Rash, Lesions, Abrasion (s) Musculoskeletal: reports: Extremity pain (She has pain down the left leg due to her back). denies: Back pain Neurologic: reports: Near syncope. denies: Generalized weakness, Focal weakness, Syncope, Headache Endocrine: reports: Other (She is not diabetic) PD PAST MEDICAL HISTORY - Past Medical History Cardiovascular: High cholesterol HEENT: Glaucoma Psych: Depression - Past Surgical History Past Surgical History: Yes HEENT: Cataracts - Present Medications Home Medications: Ambulatory Orders Medication Instructions Recorded Confirmed Cetirizine HCl [Zyrtec] 10 mg PO DAILY 10/22/12 01/10/19 Simvastatin [Zocor] 40 mg PO QPM 10/22/12 01/10/19 Zolpidem [Ambien] 5 mg PO HS 10/22/12 01/10/19 Montelukast [Singulair] 10 mg DAILY 07/16/16 01/10/19 Meloxicam, Submicronized [Vivlodex] 5 mg PO DAILY 01/10/19 01/10/19 Sertraline HCl [Zoloft] 100 mg PO DAILY 01/10/19 01/10/19 Tolterodine Tartrate [Detrol LA] 4 mg PO DAILY 01/10/19 01/10/19 - Allergies Allergies/Adverse Reactions: Allergies Allergy/AdvReac Type Severity Reaction Status Date / Time iodine Allergy Respiratory Verified 01/10/19 10:22 milk Allergy Unknown Verified 01/10/19 10:22 shellfish derived Allergy Respiratory Verified 01/10/19 10:22 acetaminophen [From Percocet] AdvReac Emesis Verified 01/10/19 10:22 oxycodone HCl * AdvReac Emesis Verified 01/10/19 10:22 [From Percocet] - Social History Does the pt smoke?: No Smoking Status: Never smoker Does the pt drink ETOH?: Yes Does the pt have substance abuse?: No - Immunizations Immunizations are current?: Yes - POLST Patient has POLST: No PD ED PE NORMAL - Vitals Vital signs reviewed: Yes - General General: Alert and oriented X 3, No acute distress, Well developed/nourished - HEENT HEENT: Atraumatic, PERRL, EOMI, Moist mucous membranes, Pharynx benign - Neck Neck: Supple, no meningeal sign, No adenopathy, Thyroid normal - Cardiac Cardiac: RRR, No murmur, Strong equal pulses - Respiratory Respiratory: No respiratory distress, Clear bilaterally - Abdomen Abdomen: Normal bowel sounds, Soft, No organomegaly - Back Back: No CVA TTP, No spinal TTP - Derm Derm: Normal color, Warm and dry, No rash - Extremities Extremities: No deformity, Normal ROM s pain, No edema - Neuro Neuro: Alert and oriented X 3, assembly adjuster 2-12 intact, No motor deficit, Normal speech - Psych Psych: Normal mood, Normal affect Results - Vitals Vitals: Vital Signs - 24 hr 01/10/19 01/10/19 01/10/19 10:23 12:16 14:42 Temperature 36.8 C 36.3 C L Heart Rate 71 62 62 Respiratory 18 18 18 Rate Blood Pressure 135/77 H 124/75 132/81 H O2 Saturation 98 95 97 Oxygen O2 Source Room air - Labs Labs: Laboratory Tests 01/10/19 01/10/19 01/10/19 10:58 11:11 11:11 WBC 6.5 RBC 4.90 Hgb 14.1 Hct 43.9 MCV 89.6 MCH 28.8 MCHC 32.1 RDW 12.8 Plt Count 231 MPV 10.2 Neut # (Auto) 3.4 Lymph # (Auto) 1.6 [place] # (Auto) 0.5 Eos # (Auto) 0.9 H Baso # (Auto) 0.1 Absolute Nucleated RBC 0.00 Nucleated RBC % 0.0 Sodium 143 Potassium 4.2 Chloride 106 Carbon Dioxide 29 Anion Gap 8.0 BUN 19 Creatinine 0.8 Estimated GFR (MDRD) 70 L Glucose 89 Calcium 9.5 Total Bilirubin 0.7 AST 23 ALT 26 Alkaline Phosphatase 72 Total Protein 7.4 Albumin 4.2 Globulin 3.2 Albumin/Globulin Ratio 1.3 Lipase 49 Urine Color YELLOW Urine Clarity CLEAR Urine pH 7.5 Ur Specific [place] 1.010 Urine Protein NEGATIVE Urine Glucose (UA) NEGATIVE Urine Ketones NEGATIVE Urine Occult Blood NEGATIVE Urine Nitrite NEGATIVE Urine Bilirubin NEGATIVE Urine Urobilinogen 0.2 (NORMAL) Ur Leukocyte Esterase MODERATE H Urine RBC 0-5 Urine WBC 6-10 H Ur Epithelial Cells RARE Renal Tubular Ur Squamous Epith Cells MOD Squamous H Urine Bacteria Many H Urine Mucus Few Strands Ur Microscopic Review INDICATED Urine Culture Comments NOT INDICATED 01/10/19 13:32 WBC RBC Hgb Hct MCV MCH MCHC RDW Plt Count MPV Neut # (Auto) Lymph # (Auto) [place] # (Auto) Eos # (Auto) Baso # (Auto) Absolute Nucleated RBC Nucleated RBC % Sodium Potassium Chloride Carbon Dioxide Anion Gap BUN Creatinine Estimated GFR (MDRD) Glucose Calcium Total Bilirubin AST ALT Alkaline Phosphatase Total Protein Albumin Globulin Albumin/Globulin Ratio Lipase Urine Color YELLOW Urine Clarity CLEAR Urine pH 7.0 Ur Specific [place] <=1.005 Urine Protein NEGATIVE Urine Glucose (UA) NEGATIVE Urine Ketones NEGATIVE Urine Occult Blood NEGATIVE Urine Nitrite NEGATIVE Urine Bilirubin NEGATIVE Urine Urobilinogen 0.2 (NORMAL) Ur Leukocyte Esterase NEGATIVE Urine RBC Urine WBC Ur Epithelial Cells Ur Squamous Epith Cells Urine Bacteria Urine Mucus Ur Microscopic Review NOT INDICATED Urine Culture Comments NOT INDICATED PD MEDICAL DECISION MAKING - ED course Complexity details: reviewed results, d/w patient ED course: White blood cell count is normal. Been doing creatinine are normal. Her urine specimen did show some white blood cells but unfortunately was contaminated with quite a few squamous epithelial cells. I suggested to her that we do a catheterized urine specimen but she wanted to try and get a more clean-catch and so that has been ordered and sent to the lab. Her abdomen is completely benign without pain to palpation at this time and I did not feel that imaging on the abdomen was warranted. The repeat urinalysis was completely clear. The patient will be discharged for outpatient management. Will discuss pain control with her. Departure - Departure Disposition: 01 Home, Self Care Clinical Impression: Abdominal pain Qualifiers: Abdominal location: left lower quadrant Qualified Code(s): R10.32 - Left lower quadrant pain Condition: Good Instructions: ED Abdominal Pain Unkn Cause Follow-Up: Karyn Edgar PA-C [Primary Care Provider] - Comments: At this point it appears that the pain is most likely related to your back. There is no evidence of urinary tract or kidney infection. You have some pain medication that you were prescribed previously that you can take at home and follow-up with your primary care provider for persistent symptoms.
[2019-01-10 11:18] LABS: BASOPHILS # (AUTO) 0.1 10^3/uL (0.0-0.1); BASOPHILS % (AUTO) 1.1 %; EOSINOPHILS # (AUTO) 0.9 10^3/uL (0.0-0.7); EOSINOPHILS % (AUTO) 13.3 %; HGB - HEMOGLOBIN 14.1 g/dL (12.0-16.0); LYMPHOCYTES # (AUTO) 1.6 10^3/uL (1.5-3.5); LYMPHOCYTES % (AUTO) 24.7 %; MEAN CORPUSCULAR HEMOGLOBIN 28.8 pg (27.0-31.0); MEAN CORPUSCULAR HGB CONC 32.1 g/dL (32.0-36.0); MEAN CORPUSCULAR VOLUME 89.6 fL (81.0-99.0); MEAN PLATELET VOLUME 10.2 fL (7.9-10.8); MONOCYTES # (AUTO) 0.5 10^3/uL (0.0-1.0); MONOCYTES % (AUTO) 7.8 %; NEUTROPHILS # (AUTO) 3.4 10^3/uL (1.5-6.6); NEUTROPHILS % (AUTO) 52.6 %; PLT - PLATELET COUNT 231 10^3/uL (130-450); RED CELL DISTRIBUTION WIDTH 12.8 % (12.0-15.0); WHITE BLOOD COUNT 6.5 x10^3/uL (4.8-10.8)
[2019-01-10 11:18] LABS: BILIRUBIN,URINE NEGATIVE (NEGATIVE); GLUCOSE, URINE (UA) NEGATIVE (NEGATIVE); KETONES,URINE (UA) NEGATIVE (NEGATIVE); LEUKOCYTE ESTERASE, URINE MODERATE (NEGATIVE); NITRITE,URINE NEGATIVE (NEGATIVE); OCCULT BLOOD,URINE NEGATIVE (NEGATIVE); PH,URINE 7.5 PH (5.0-7.5); PROTEIN,URINE NEGATIVE (NEGATIVE); UROBILINOGEN,URINE 0.2 (NORMAL) E.U./dL (NORMAL)
[2019-01-10 11:20] LABS: CLARITY,URINE CLEAR (CLEAR)
[2019-01-10 11:31] LABS: BACTERIA,URINE Many /HPF (None Seen); MUCUS,URINE Few Strands; RBC,URINE 0-5 /HPF (0-5); SQUAMOUS EPITHELIAL CELL,UR MOD Squamous (<= Few)
[2019-01-10 11:31] LABS: ALBUMIN 4.2 g/dL (3.2-5.5); ALBUMIN/GLOBULIN RATIO 1.3 (1.0-2.2); BILIRUBIN,TOTAL 0.7 mg/dL (0.2-1.0); CALCIUM 9.5 mg/dL (8.5-10.3); CREATININE 0.8 mg/dL (0.4-1.0); TOTAL PROTEIN 7.4 g/dL (6.7-8.2)
[2019-01-10 14:42] VITALS: BP 132/81
[2019-01-10 14:43] LABS: BILIRUBIN,URINE NEGATIVE (NEGATIVE); GLUCOSE, URINE (UA) NEGATIVE (NEGATIVE); KETONES,URINE (UA) NEGATIVE (NEGATIVE); LEUKOCYTE ESTERASE, URINE NEGATIVE (NEGATIVE); NITRITE,URINE NEGATIVE (NEGATIVE); OCCULT BLOOD,URINE NEGATIVE (NEGATIVE); PROTEIN,URINE NEGATIVE (NEGATIVE); UROBILINOGEN,URINE 0.2 (NORMAL) E.U./dL (NORMAL)
[2019-01-10 14:45] LABS: CLARITY,URINE CLEAR (CLEAR)
== END 2019-01-10 15:23 | disposition home or self-care (01) ==
LOC: ED 10:18
DX: R10.32 Left lower quadrant pain (principal); R42 Dizziness and giddiness
CPT/HCPCS: 36415; 80053; 81001; 81003; 83690; 85025; 87086; 99283; 99284

== ENCOUNTER 2019-07-06 12:58 | Outpatient (CLI) | payer MEDICARE, OTHER ==
--- NOTE | 2019-07-06 11:26 | SLEEP CARE CONSULTATION ---
Information from patient questionnaire entered by Linda Colon. I have reviewed and concur with the information entered by Linda Colon. This document represents the service I personally performed and the decisions made by me, Marilia Zapata, RN, MSN, MACHINE II CUTTER. History of Present Illness Service Date and Time: 07/06/2019 1100 Previous diagnosis: Severe, Obstructive Sleep Apnea-Hypopnea Syndrome AHI: 42.7 (in 2010) Reason for follow up: other (8 month) Equipment type: CPAP Equipment obtained from: [employer] (getting supplies as needed) Mask style: Nasal Mask brand: Respironics Backup mask available: Yes (old) Last cushion change: a month ago Prior sleep studies: Yes Year and Where: 2010 - [facility] Type of Sleep Study: Polysomnography CPAP Compliance Data - Data Reviewed with Patient Average duration of nightly device use: 5.4 Compliance rate %: 62.2 (180 days) Current pressure setting (cmH2O): 8-11 Humidity settin Heated hose settin Average residual AHI: 5.7 Average large leak: 1 hr 56 min 43 sec Subjective Missed days of use due to: reports: other (did not have distilled water and did not use until had some. ) Patient concerns: reports: dry mouth, nose, throat, other (dry throat ). denies: aerophagia, mask discomfort, air blowing in eyes, mask leak noise, condensation in mask/hose, nasal congestion, epistaxis Observed to snore while using device: No Current pressure setting perceived as: comfortable On therapy, patient: reports: other (no change ). denies: drowsiness while driving Initial [place] Sleepiness Scale score: 8 (in 2010) Physical Exam Height: 4 ft 11.5 in Impression and Plan 1. Obstructive Sleep Apnea-Hypopnea Syndrome, severe, with fair treatment compliance and slightly elevated residual AHI. Past attempts to reduce the residual AHI lower have not worked. Part of this slight elevation of 5.7 could be due to mask leaks that patient is experiencing but rarely noticing in her sleep to adjust mask. She is changing mask cushion regularly. On CPAP therapy, has noted no change when she was not using it due to lack of distilled water. I advised her that she could use CPAP without the water or temporarily use bottled water but not tap water. I reviewed her polysomnography and her hiwot oxygen saturation was 82%. Patient's apnea severity and rationale for treatment to reduce apnea, improve sleep quality and reduce hypertension, cardiovascular and cerebrovascular events was reviewed. I advised her to use it with ll sleep to maximize benefit of treatment. Oral dryness can be reduced by adjusting heated hose lower or by adjusting both settings with rationale explained why to change. Oral dryness can also be reduced by reducing mask leaks. Patient advised that chronic oral dryness can affect dental health and advised to follow up with dentist. In addition, there are oral dryness products that can be used to reduce dryness. Patient to discuss best option with dentist. * Continue auto CPAP pressure at 8-11 cmH2O * use CPAP with all sleep. * Notify me if snoring with mask or feeling that the pressure is too much or too little * Call this office if any problems using CPAP * Return for follow up in 2 months , or sooner if concerns arise Visit Type: Telehealth Phone (to reduce risk of Covid 19 exposure) Video Type: [facility] Patient Location: Home Location of Provider: Home Patient agrees and consents to this telehealth visit type: Yes Patient agrees to have their insurance billed: Yes Time Spent with Patient (minutes): 10+ / patient is hard of hearing Provider Statement: I spent 100% of the Telehealth Phone Call with the patient with greater than 50% spent counseling the patient and coordination of care.
== END 2019-07-06 12:59 | disposition home or self-care (01) ==
LOC: SC 12:58
PROVIDERS: ATTEND Nurse Practitioner Family
DX: G47.33 Obstructive sleep apnea (adult) (pediatric) (principal)

== ENCOUNTER 2019-09-06 09:29 | Outpatient (CLI) | payer MEDICARE, OTHER ==
[2019-09-06 12:28] LABS: BASOPHILS # (AUTO) 0.1 10^3/uL (0.0-0.1); EOSINOPHILS # (AUTO) 0.5 10^3/uL (0.0-0.7); EOSINOPHILS % (AUTO) 8.7 %; HGB - HEMOGLOBIN 14.3 g/dL (12.0-16.0); LYMPHOCYTES % (AUTO) 32.7 %; MEAN CORPUSCULAR HEMOGLOBIN 28.6 pg (27.0-31.0); MEAN CORPUSCULAR HGB CONC 31.6 g/dL (32.0-36.0); MEAN CORPUSCULAR VOLUME 90.6 fL (81.0-99.0); MONOCYTES # (AUTO) 0.5 10^3/uL (0.0-1.0); MONOCYTES % (AUTO) 7.5 %; NEUTROPHILS # (AUTO) 3.1 10^3/uL (1.5-6.6); NEUTROPHILS % (AUTO) 49.8 %; PLT - PLATELET COUNT 220 10^3/uL (130-450); RED CELL DISTRIBUTION WIDTH 13.2 % (12.0-15.0); WHITE BLOOD COUNT 6.2 x10^3/uL (4.8-10.8)
[2019-09-06 12:46] LABS: ALBUMIN 4.1 g/dL (3.2-5.5); ALBUMIN/GLOBULIN RATIO 1.4 (1.0-2.2); ALKALINE PHOSPHATASE 85 IU/L (42-121); ALT ALANINE AMINOTRANSFERASE 25 IU/L (10-60); AST ASPARTATE AMINOTRANSFERASE 25 IU/L (10-42); BILIRUBIN,TOTAL 0.5 mg/dL (0.2-1.0); BUN - BLOOD UREA NITROGEN 17 mg/dL (6-20); CALCIUM 9.6 mg/dL (8.5-10.3); CARBON DIOXIDE - CO2 32 mmol/L (21-32); CHLORIDE 105 mmol/L (101-111); CHOL/HDL RATIO 3.8 (<4.4); CHOLESTEROL 222 mg/dL; CREATININE 0.9 mg/dL (0.4-1.0); GLUCOSE 103 mg/dL (70-100); HDL CHOLESTEROL 59 mg/dL; LDL CHOLESTEROL,CALCULATED 133 mg/dL; LDL/HDL RATIO 2.3 (<4.4); SODIUM 142 mmol/L (135-145); VLDL CHOLESTEROL 30 mg/dL
== END 2019-09-06 23:59 | disposition home or self-care (01) ==
LOC: LAB.WCP 09:29
PROVIDERS: ATTEND Physician Assistant Medical
DX: E78.5 Hyperlipidemia, unspecified (principal); K21.9 Gastro-esophageal reflux disease without esophagitis
CPT/HCPCS: 36415; 80053; 80061; 83721; 85025

== ENCOUNTER 2019-10-24 13:30 | Emergency (ER) | payer MEDICARE, OTHER ==
--- NOTE | 2019-10-24 14:07 | ED Physician Documentation ---
PD HPI ALTERED MENTAL STATUS - Stated complaint Stated Complaint: DIZZINESS - Chief complaint Chief Complaint: Neuro - History obtained from History obtained from: Patient - Additional information Additional information: This is a mary woman with mild dementia who presents with dizziness starting yesterday. She finds it difficult to describe it. She does endorse spinning. But she also endorses lightheadedness. It does not get worse if she turns her head. She feels slightly off balance. She also describes disorientation although she is not actually disoriented. Also complains of lethargy although she is not lethargic. She does not think she is ever had this before. No trouble with her ears. No chest pain or trouble breathing. 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 : None HEENT: Glaucoma Psych: Depression Musculoskeletal: None Derm: None - Past Surgical History Past Surgical History: Yes HEENT: Cataracts - Present Medications Home Medications: Ambulatory Orders Medication Instructions Recorded Confirmed Cetirizine HCl [Zyrtec] 10 mg PO DAILY 10/22/12 01/10/19 Simvastatin [Zocor] 40 mg PO QPM 10/22/12 01/10/19 Zolpidem [Ambien] 5 mg PO HS 10/22/12 01/10/19 Montelukast [Singulair] 10 mg DAILY 07/16/16 01/10/19 Meloxicam, Submicronized [Vivlodex] 5 mg PO DAILY 01/10/19 01/10/19 Sertraline HCl [Zoloft] 100 mg PO DAILY 01/10/19 01/10/19 Tolterodine Tartrate [Detrol LA] 4 mg PO DAILY 01/10/19 01/10/19 Ciprofloxacin [Cipro] 250 mg PO Q12H #6 tablet 10/24/19 - Allergies Allergies/Adverse Reactions: Allergies Allergy/AdvReac Type Severity Reaction Status Date / Time iodine Allergy Respiratory Verified 10/24/19 13:46 milk Allergy Unknown Verified 10/24/19 13:46 shellfish derived Allergy Respiratory Verified 10/24/19 13:46 acetaminophen [From Percocet] AdvReac Emesis Verified 10/24/19 13:46 oxycodone HCl * AdvReac Emesis Verified 10/24/19 13:46 [From Percocet] - Social History Does the pt smoke?: No Smoking Status: Never smoker Does the pt drink ETOH?: Yes Does the pt have substance abuse?: No - Immunizations Immunizations are current?: Yes - POLST Patient has POLST: No PD ED PE NORMAL - Vitals Vital signs reviewed: Yes - General General: Alert and oriented X 3 (Some difficulty coming up with the date but does okay) - HEENT HEENT: PERRL, EOMI (Without nystagmus) - Neck Neck: Supple, no meningeal sign, No bony TTP - Cardiac Cardiac: RRR, No murmur - Respiratory Respiratory: No respiratory distress, Clear bilaterally - Abdomen Abdomen: Non tender - Back Back: No CVA TTP - Derm Derm: Normal color, Warm and dry - Extremities Extremities: No edema, No calf tenderness / cord - Neuro Neuro: Alert and oriented X 3, No motor deficit, No sensory deficit, Normal speech, Other (Normal dotqwt-op-ktbh and tgyk-gj-vini testing) Results - Vitals Vitals: Vital Signs - 24 hr 10/24/19 13:33 Temperature 36.6 C Heart Rate 81 Respiratory 18 Rate Blood Pressure 130/78 O2 Saturation 98 Oxygen O2 Source Room air - EKG (time done) 1339 Rate: Rate (enter#) (71) Rhythm: NSR [place]: Normal Intervals: Normal [place] QRS: Normal Ischemia: Normal ST segments - Labs Labs: Laboratory Tests 10/24/19 10/24/19 10/24/19 14:10 14:10 14:10 WBC 8.3 RBC 5.21 Hgb 15.2 Hct 46.6 MCV 89.4 MCH 29.2 MCHC 32.6 RDW 13.0 Plt Count 248 MPV 10.4 Neut # (Auto) 5.5 Lymph # (Auto) 1.8 [place] # (Auto) 0.5 Eos # (Auto) 0.4 Baso # (Auto) 0.1 Absolute Nucleated RBC 0.00 Nucleated RBC % 0.0 Sodium 141 Potassium 3.7 Chloride 102 Carbon Dioxide 30 Anion Gap 9.0 BUN 12 Creatinine 0.7 Estimated GFR (MDRD) 81 L Glucose 124 H Calcium 9.9 Total Bilirubin 0.6 AST 20 ALT 17 Alkaline Phosphatase 97 Total Protein 7.9 Albumin 4.5 Globulin 3.4 Albumin/Globulin Ratio 1.3 Lipase 40 Urine Color YELLOW Urine Clarity SL. CLOUDY Urine pH 5.5 Ur Specific [place] >=1.030 H Urine Protein NEGATIVE Urine Glucose (UA) NEGATIVE Urine Ketones NEGATIVE Urine Occult Blood NEGATIVE Urine Nitrite NEGATIVE Urine Bilirubin NEGATIVE Urine Urobilinogen 0.2 (NORMAL) Ur Leukocyte Esterase MODERATE H Urine RBC 0-5 Urine WBC 11-25 H Ur Squamous Epith Cells FEW Squamous Urine Bacteria Few Urine Mucus Marked Strands Ur Microscopic Review INDICATED Urine Culture Comments INDICATED PD MEDICAL DECISION MAKING - ED course ED course: 79-year-old woman was presents with nonspecific dizziness. Has elements of both vertigo and lightheadedness. Her neurologic examination is normal as is a CT of the head. Her blood work is normal. Urinalysis does show evidence of UTI. Departure - Departure Disposition: 01 Home, Self Care Clinical Impression: Dysequilibrium, Cystitis Condition: Good Record reviewed to determine appropriate education?: Yes Instructions: ED Dizziness UKO, ED UTI Cystitis Female Prescriptions: Ciprofloxacin [Cipro] 250 mg PO Q12H #6 tablet Comments: Follow-up with your doctor towards the end of the week for recheck. Return for new or worsening symptoms. Take the second dose of the antibiotic tonight. We will culture the urine and if a change in antibiotics is necessary we will call you in approximately 2 days. [place] [facility] [place]
[2019-10-24 14:17] LABS: BASOPHILS # (AUTO) 0.1 10^3/uL (0.0-0.1); EOSINOPHILS # (AUTO) 0.4 10^3/uL (0.0-0.7); EOSINOPHILS % (AUTO) 4.6 %; HGB - HEMOGLOBIN 15.2 g/dL (12.0-16.0); LYMPHOCYTES # (AUTO) 1.8 10^3/uL (1.5-3.5); LYMPHOCYTES % (AUTO) 22.2 %; MEAN CORPUSCULAR HEMOGLOBIN 29.2 pg (27.0-31.0); MEAN CORPUSCULAR HGB CONC 32.6 g/dL (32.0-36.0); MEAN CORPUSCULAR VOLUME 89.4 fL (81.0-99.0); MEAN PLATELET VOLUME 10.4 fL (7.9-10.8); MONOCYTES # (AUTO) 0.5 10^3/uL (0.0-1.0); MONOCYTES % (AUTO) 5.9 %; NEUTROPHILS # (AUTO) 5.5 10^3/uL (1.5-6.6); NEUTROPHILS % (AUTO) 66.1 %; PLT - PLATELET COUNT 248 10^3/uL (130-450); RED BLOOD COUNT 5.21 10^6/uL (4.20-5.40); WHITE BLOOD COUNT 8.3 x10^3/uL (4.8-10.8)
[2019-10-24 14:26] LABS: BILIRUBIN,URINE NEGATIVE (NEGATIVE); CLARITY,URINE SL. CLOUDY (CLEAR); GLUCOSE, URINE (UA) NEGATIVE (NEGATIVE); KETONES,URINE (UA) NEGATIVE (NEGATIVE); LEUKOCYTE ESTERASE, URINE MODERATE (NEGATIVE); NITRITE,URINE NEGATIVE (NEGATIVE); OCCULT BLOOD,URINE NEGATIVE (NEGATIVE); PH,URINE 5.5 PH (5.0-7.5); PROTEIN,URINE NEGATIVE (NEGATIVE); UROBILINOGEN,URINE 0.2 (NORMAL) E.U./dL (NORMAL)
[2019-10-24 14:28] LABS: ALBUMIN 4.5 g/dL (3.2-5.5); ALBUMIN/GLOBULIN RATIO 1.3 (1.0-2.2); BILIRUBIN,TOTAL 0.6 mg/dL (0.2-1.0); CALCIUM 9.9 mg/dL (8.5-10.3); CREATININE 0.7 mg/dL (0.4-1.0); TOTAL PROTEIN 7.9 g/dL (6.7-8.2)
[2019-10-24 14:37] LABS: BACTERIA,URINE Few /HPF (None Seen); MUCUS,URINE Marked Strands; RBC,URINE 0-5 /HPF (0-5); SQUAMOUS EPITHELIAL CELL,UR FEW Squamous (<= Few)
--- NOTE | 2019-10-24 14:38 | CT Report ---
PROCEDURE: HEAD WO INDICATIONS: dizzyness TECHNIQUE: Noncontrast 4.5 mm thick angled axial sections acquired from the foramen magnum to the vertex. For r adiation dose reduction, the following was used: automated exposure control, adjustment of mA and/or kV according to patient size. COMPARISON: 07/16/2016. Correlation is also made with brain MRI 09/10/2018 FINDINGS: Image quality: Excellent. CSF spaces: Basal cisterns are patent. No extra-axial fluid collections. Ventricles are normal in size and shape. Brain: No midline shift. No intracranial masses or hemorrhage. [place]-white matter interface is norm al. Skull and face: Calvarium and visualized facial bones are intact, without suspicious lesions. Sinuses: Visualized sinuses and mastoids are clear. IMPRESSION: Unremarkable intracranial study, without an imaging explanation found for the patient's presenting hi story of dizziness. If it would be helpful for clinical management decision making, please consider a dedicated brain MRI with IAC protocol (without and with contrast) for further evaluation (assuming that there is no cont raindication). Reviewed by: Gage Brandt MD on 10/24/2019 1:36 PM MAREN Approved by: Gage Brandt MD on 10/24/2019 1:36 PM MAREN Station ID: [id number]
[2019-10-24] MEDS ORDERED: CIPROFLOXACIN 250 MG TABLET PO STA (14:45)
[2019-10-24 15:05] VITALS: BP 144/69
== END 2019-10-24 15:03 | disposition home or self-care (01) ==
LOC: ED 13:30
DX: R42 Dizziness and giddiness (principal); N30.90 Cystitis, unspecified without hematuria; E78.00 Pure hypercholesterolemia, unspecified; F03.90 Unspecified dementia, unspecified severity, without behavioral disturbance, psychotic disturbance, mood disturbance, and anxiety
CPT/HCPCS: 36415; 70450; 80053; 81001; 83690; 85025; 87086; 93005; 99284; A9270; 81003

== ENCOUNTER 2019-11-16 08:00 | Outpatient (CLI) | payer MEDICARE, OTHER | END 2019-11-16 23:59 | disposition home or self-care (01) | LOC: LAB.R 08:00 | PROVIDERS: ATTEND Physician Assistant Medical | DX: N39.0 Urinary tract infection, site not specified (principal) | CPT/HCPCS: 87086 ==

== ENCOUNTER 2019-11-24 08:00 | Outpatient (CLI) | payer MEDICARE, OTHER | END 2019-11-24 23:59 | disposition home or self-care (01) | LOC: LAB.R 08:00 | PROVIDERS: ATTEND Family Medicine | DX: N39.0 Urinary tract infection, site not specified (principal) | CPT/HCPCS: 87086 ==

== ENCOUNTER 2019-12-19 08:00 | Outpatient (CLI) | payer MEDICARE, OTHER ==
[2019-12-19 17:48] LABS: BILIRUBIN,URINE NEGATIVE (NEGATIVE); GLUCOSE, URINE (UA) NEGATIVE (NEGATIVE); KETONES,URINE (UA) NEGATIVE (NEGATIVE); LEUKOCYTE ESTERASE, URINE TRACE (NEGATIVE); NITRITE,URINE NEGATIVE (NEGATIVE); OCCULT BLOOD,URINE TRACE-INTA (NEGATIVE); PROTEIN,URINE NEGATIVE (NEGATIVE); UROBILINOGEN,URINE 0.2 (NORMAL) E.U./dL (NORMAL)
[2019-12-19 17:58] LABS: CLARITY,URINE CLEAR (CLEAR)
[2019-12-19 18:19] LABS: BACTERIA,URINE Rare /HPF (None Seen); RBC,URINE 0-5 /HPF (0-5); SQUAMOUS EPITHELIAL CELL,UR FEW Squamous (<= Few)
== END 2019-12-19 23:59 | disposition home or self-care (01) ==
LOC: LAB.R 08:00
PROVIDERS: ATTEND Nurse Practitioner
DX: B37.3 Candidiasis of vulva and vagina (principal); N39.0 Urinary tract infection, site not specified
CPT/HCPCS: 81001; 87086

== ENCOUNTER 2020-01-31 08:00 | Outpatient (CLI) | payer MEDICARE, OTHER | END 2020-01-31 23:59 | disposition home or self-care (01) | LOC: LAB.WCP 08:00 | PROVIDERS: ATTEND Physician Assistant Medical | DX: N39.0 Urinary tract infection, site not specified (principal) | CPT/HCPCS: 81002 ==

== ENCOUNTER 2020-02-01 10:00 | Outpatient (CLI) | payer MEDICARE, OTHER | END 2020-02-01 23:59 | disposition home or self-care (01) | LOC: LAB.R 10:00 | PROVIDERS: ATTEND Physician Assistant Medical | DX: N39.0 Urinary tract infection, site not specified (principal) | CPT/HCPCS: 87086 ==

== ENCOUNTER 2020-02-18 15:10 | Outpatient (CLI) | payer MEDICARE, OTHER | END 2020-02-19 23:59 | disposition home or self-care (01) | LOC: LAB.N 15:10 | PROVIDERS: ATTEND Physician Assistant Medical | DX: B37.3 Candidiasis of vulva and vagina (principal) | CPT/HCPCS: 87086 ==

== ENCOUNTER 2020-02-21 10:29 | Outpatient (CLI) | payer MEDICARE, OTHER | END 2020-02-21 10:30 | disposition home or self-care (01) | LOC: LAB.N 10:29 | PROVIDERS: ATTEND Physician Assistant Medical | DX: B37.3 Candidiasis of vulva and vagina (principal); R30.0 Dysuria | CPT/HCPCS: 87086 ==

== ENCOUNTER 2020-03-08 14:30 | Outpatient (CLI) | payer MEDICARE, OTHER ==
[2020-03-08 19:36] LABS: CANDIDA GROUP DNA NEGATIVE (NEGATIVE); CANDIDA KRUSEI DNA NEGATIVE (NEGATIVE); TRICHOMONAS VAGINALIS DNA NEGATIVE (NEGATIVE)
== END 2020-03-08 23:59 | disposition home or self-care (01) ==
LOC: LAB.R 14:30
PROVIDERS: ATTEND Physician Assistant Medical
DX: B37.3 Candidiasis of vulva and vagina (principal)
CPT/HCPCS: 87661; 87801

== ENCOUNTER 2020-04-03 07:00 | Outpatient (CLI) | payer MEDICARE, OTHER ==
[2020-04-03 23:04] LABS: CANDIDA GROUP DNA NEGATIVE (NEGATIVE); CANDIDA KRUSEI DNA NEGATIVE (NEGATIVE); TRICHOMONAS VAGINALIS DNA NEGATIVE (NEGATIVE)
== END 2020-04-03 23:59 | disposition home or self-care (01) ==
LOC: LAB.R 07:00
PROVIDERS: ATTEND Physician Assistant Medical
DX: B37.3 Candidiasis of vulva and vagina (principal)
CPT/HCPCS: 87661; 87801

== ENCOUNTER 2020-04-25 10:06 | Outpatient (CLI) | payer MEDICARE, OTHER ==
--- NOTE | 2020-04-26 14:15 | Mammography Report ---
BILATERAL DIGITAL SCREENING MAMMOGRAM 3D/2D: 04/25/2020 CLINICAL: Routine screening. Comparison is made to exams dated: 11/26/2018 mammogram, 04/28/2017 mammogram - Merged with [facility], 03/18/2016 mammogram, and 03/14/2015 mammogram - [facility]. The tissue of both breasts is heterogeneously dense. This may lower the sensitivity of mammography. No significant masses, calcifications, or other findings are seen in either breast. There has been no significant interval change. IMPRESSION: NEGATIVE There is no mammographic evidence of malignancy. A 1 year screening mammogram is recommended. This exam was interpreted at Station ID: [id number]. NOTE: For mammograms, a report in lay terms will be sent to the patient. Approximately 15% of breast malignancies will not be visualized mammographically. In the management of a palpable breast mass, a negative mammogram must not discourage biopsy of a clinically suspicious lesion. Electronically Signed By: Ani nichols/vinay:04/25/2020 14:17:22 ACR BI-RADS Category 1: Negative 3341F PARENCHYMAL PATTERN: (D) - The breast(s) demonstrate(s) heterogeneously dense fibroglandular beck awan. BI-RADS CATEGORY: (1) - 1 RECOMMENDATION: (ANNUAL) - Recommend routine annual screening mammography. [id number] 1 year screening LATERALITY: (B)
== END 2020-04-25 10:07 | disposition home or self-care (01) ==
LOC: DI.N 10:06
DX: Z12.31 Encounter for screening mammogram for malignant neoplasm of breast (principal)

== ENCOUNTER 2020-05-31 09:28 | Emergency (ER) | payer MEDICARE, OTHER ==
[2020-05-31 10:05] LABS: BASOPHILS # (AUTO) 0.1 10^3/uL (0.0-0.1); BASOPHILS % (AUTO) 0.5 %; EOSINOPHILS # (AUTO) 0.1 10^3/uL (0.0-0.7); EOSINOPHILS % (AUTO) 1.2 %; LYMPHOCYTES # (AUTO) 1.5 10^3/uL (1.5-3.5); LYMPHOCYTES % (AUTO) 12.4 %; MEAN CORPUSCULAR HEMOGLOBIN 28.6 pg (27.0-31.0); MEAN CORPUSCULAR HGB CONC 31.8 g/dL (32.0-36.0); MEAN CORPUSCULAR VOLUME 89.8 fL (81.0-99.0); MEAN PLATELET VOLUME 10.3 fL (7.9-10.8); MONOCYTES # (AUTO) 0.8 10^3/uL (0.0-1.0); MONOCYTES % (AUTO) 6.3 %; NEUTROPHILS # (AUTO) 9.4 10^3/uL (1.5-6.6); NEUTROPHILS % (AUTO) 79.2 %; PLT - PLATELET COUNT 240 10^3/uL (130-450); RED CELL DISTRIBUTION WIDTH 12.8 % (12.0-15.0); WHITE BLOOD COUNT 11.9 x10^3/uL (4.8-10.8)
[2020-05-31 10:18] LABS: ALBUMIN 4.4 g/dL (3.2-5.5); ALBUMIN/GLOBULIN RATIO 1.4 (1.0-2.2); BILIRUBIN,TOTAL 0.8 mg/dL (0.2-1.0); CALCIUM 9.6 mg/dL (8.5-10.3); CREATININE 0.9 mg/dL (0.4-1.0); POTASSIUM 3.2 mmol/L (3.5-5.0); TOTAL PROTEIN 7.6 g/dL (6.7-8.2)
[2020-05-31 11:28] LABS: BILIRUBIN,URINE NEGATIVE (NEGATIVE); GLUCOSE, URINE (UA) NEGATIVE (NEGATIVE); KETONES,URINE (UA) NEGATIVE (NEGATIVE); LEUKOCYTE ESTERASE, URINE SMALL (NEGATIVE); NITRITE,URINE NEGATIVE (NEGATIVE); OCCULT BLOOD,URINE NEGATIVE (NEGATIVE); PROTEIN,URINE NEGATIVE (NEGATIVE); UROBILINOGEN,URINE 0.2 (NORMAL) E.U./dL (NORMAL)
[2020-05-31 11:29] LABS: CLARITY,URINE HAZY (CLEAR)
[2020-05-31 11:30] LABS: SQUAMOUS EPITHELIAL CELL,UR MOD Squamous (<= Few)
[2020-05-31 11:31] LABS: BACTERIA,URINE Moderate /HPF (None Seen)
--- NOTE | 2020-05-31 13:45 | ED Physician Documentation ---
History of Present Illness - Stated complaint Stated Complaint: LT SIDE PX - Chief complaint Chief Complaint: Abd Pain - Additonal information Additional information: 80-year-old woman with history of hyperlipidemia, depression, dementia, ov eractive bladder presents with left inguinal pain over the past 24 hours, intermittent overnight, keeping her from sleep. Upon my examination the patient states that her pain is resolved on its own. History limited by patient report that she has Alzheimer's dementia.Denies back pain, fever, n/v/d, urine symptoms. 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 HEENT: Glaucoma Psych: Depression Musculoskeletal: None Derm: None - Past Surgical History Past Surgical History: Yes HEENT: Cataracts - Present Medications Home Medications: Ambulatory Orders Medication Instructions Recorded Confirmed Cetirizine HCl [Zyrtec] 10 mg PO DAILY 10/22/12 05/31/20 Simvastatin [Zocor] 40 mg PO QPM 10/22/12 05/31/20 Zolpidem [Ambien] 5 mg PO HS 10/22/12 05/31/20 Montelukast [Singulair] 10 mg DAILY 07/16/16 05/31/20 Meloxicam, Submicronized [Vivlodex] 5 mg PO DAILY 01/10/19 05/31/20 Sertraline HCl [Zoloft] 100 mg PO DAILY 01/10/19 05/31/20 - Allergies Allergies/Adverse Reactions: Allergies Allergy/AdvReac Type Severity Reaction Status Date / Time iodine Allergy Respiratory Verified 05/31/20 09:42 milk Allergy Unknown Verified 05/31/20 09:42 shellfish derived Allergy Respiratory Verified 05/31/20 09:42 acetaminophen [From Percocet] AdvReac Emesis Verified 05/31/20 09:42 oxycodone HCl * AdvReac Emesis Verified 05/31/20 09:42 [From Percocet] - Social History Does the pt smoke?: No Smoking Status: Never smoker Does the pt drink ETOH?: Yes Does the pt have substance abuse?: No - Immunizations Immunizations are current?: Yes - POLST Patient has POLST: No PD ED PE NORMAL - Vitals Vital signs reviewed: Yes - General General: Alert and oriented X 3, No acute distress, Well developed/nourished - HEENT HEENT: Atraumatic, PERRL, EOMI - Neck Neck: Supple, no meningeal sign - Cardiac Cardiac: RRR - Respiratory Respiratory: No respiratory distress, Clear bilaterally - Abdomen Abdomen: Non tender, Non distended, Other (L inguinal discomfort to palpation) - Female Female : Deferred - Rectal Rectal: Deferred - Back Back: No CVA TTP - Derm Derm: Normal color, Warm and dry - Extremities Extremities: No deformity - Neuro Neuro: Alert and oriented X 3 - Psych Psych: Normal mood, Normal affect Results - Vitals Vitals: Vital Signs - 24 hr 05/31/20 09:37 Temperature 36.3 C L Heart Rate 83 Respiratory 16 Rate Blood Pressure 140/75 H O2 Saturation 99 Oxygen O2 Source Room air - Labs Labs: Laboratory Tests 05/31/20 05/31/20 05/31/20 09:50 09:50 11:20 WBC 11.9 H RBC 4.90 Hgb 14.0 Hct 44.0 MCV 89.8 MCH 28.6 MCHC 31.8 L RDW 12.8 Plt Count 240 MPV 10.3 Neut # (Auto) 9.4 H Lymph # (Auto) 1.5 [place] # (Auto) 0.8 Eos # (Auto) 0.1 Baso # (Auto) 0.1 Absolute Nucleated RBC 0.00 Nucleated RBC % 0.0 Sodium 137 Potassium 3.2 L Chloride 99 L Carbon Dioxide 27 Anion Gap 11.0 BUN 17 Creatinine 0.9 Estimated GFR (MDRD) 61 L Glucose 126 H Calcium 9.6 Total Bilirubin 0.8 AST 22 ALT 20 Alkaline Phosphatase 83 Total Protein 7.6 Albumin 4.4 Globulin 3.2 Albumin/Globulin Ratio 1.4 Lipase 28 Urine Color YELLOW Urine Clarity HAZY Urine pH 7.0 Ur Specific [place] 1.015 Urine Protein NEGATIVE Urine Glucose (UA) NEGATIVE Urine Ketones NEGATIVE Urine Occult Blood NEGATIVE Urine Nitrite NEGATIVE Urine Bilirubin NEGATIVE Urine Urobilinogen 0.2 (NORMAL) Ur Leukocyte Esterase SMALL H Urine RBC 6-10 H Urine WBC 4-5 Ur Squamous Epith Cells MOD Squamous H Urine Bacteria Moderate H Ur Microscopic Review INDICATED Urine Culture Comments NOT INDICATED PD MEDICAL DECISION MAKING - ED course ED course: 80-year-old woman presents with abdominal pain last night keeping her from sleeping. Her work-up in the emergency department is unremarkable. Return precautions discussed. Patient will follow up with her primary MATTHEW Edgar. Departure - Departure Disposition: 01 Home, Self Care Clinical Impression: Abdominal pain Condition: Good Instructions: ED Abdominal Pain Unkn Cause Follow-Up: Karyn Edgar PA-C [Primary Care Provider] - Comments: You were seen in the emergency department for abdominal pain. Your lab work and urinalysis did not show a cause for your pain. Because your pain has resolved on its own we will discharge you and have you follow-up with your primary doctor this week.Return to the emergency department if you experience any new or worsening symptoms or have other concerns
[2020-05-31 13:54] VITALS: BP 130/80
== END 2020-05-31 13:54 | disposition home or self-care (01) ==
LOC: ED 09:28
DX: R10.30 Lower abdominal pain, unspecified (principal); G30.9 Alzheimer's disease, unspecified; F02.80 Dementia in other diseases classified elsewhere, unspecified severity, without behavioral disturbance, psychotic disturbance, mood disturbance, and anxiety
CPT/HCPCS: 36415; 80053; 81001; 81003; 83690; 85025; 87086; 99281; 99283

== ENCOUNTER 2020-06-06 13:53 | Outpatient (CLI) | payer MEDICARE, OTHER | END 2020-06-06 23:59 | disposition home or self-care (01) | LOC: LAB.N 13:53 | PROVIDERS: ATTEND Nurse Practitioner | DX: R30.0 Dysuria (principal) | CPT/HCPCS: 87086 ==

== ENCOUNTER 2020-06-11 08:00 | Outpatient (CLI) | payer MEDICARE, OTHER | END 2020-06-11 23:59 | disposition home or self-care (01) | LOC: LAB.N 08:00 | PROVIDERS: ATTEND Nurse Practitioner | DX: N39.0 Urinary tract infection, site not specified (principal) | CPT/HCPCS: 87086 ==

== ENCOUNTER 2020-06-18 08:00 | Outpatient (CLI) | payer MEDICARE, OTHER ==
[2020-06-18 20:40] LABS: BACTERIAL VAGINOSIS DNA NEGATIVE (NEGATIVE); CANDIDA GLABRATA DNA POSITIVE (NEGATIVE); CANDIDA GROUP DNA NEGATIVE (NEGATIVE); CANDIDA KRUSEI DNA NEGATIVE (NEGATIVE); TRICHOMONAS VAGINALIS DNA NEGATIVE (NEGATIVE)
== END 2020-06-18 23:59 | disposition home or self-care (01) ==
LOC: LAB.WC 08:00
PROVIDERS: ATTEND Obstetrics & Gynecology
DX: N81.4 Uterovaginal prolapse, unspecified (principal); N76.0 Acute vaginitis
CPT/HCPCS: 87661; 87801

== ENCOUNTER 2020-07-13 08:00 | Outpatient (CLI) | payer MEDICARE, OTHER | END 2020-07-13 23:59 | disposition home or self-care (01) | LOC: LAB.N 08:00 | PROVIDERS: ATTEND Family Medicine | DX: J06.9 Acute upper respiratory infection, unspecified (principal); Z20.822 Contact with and (suspected) exposure to COVID-19 ==

== ENCOUNTER 2020-07-17 08:00 | Outpatient (CLI) | payer MEDICARE, OTHER | END 2020-07-17 23:59 | disposition home or self-care (01) | LOC: LAB.N 08:00 | PROVIDERS: ATTEND Family Medicine | DX: R30.0 Dysuria (principal) | CPT/HCPCS: 87086; 87181 ==

== ENCOUNTER 2020-09-06 08:00 | Outpatient (CLI) | payer MEDICARE, OTHER ==
[2020-09-06 11:34] LABS: BASOPHILS # (AUTO) 0.1 10^3/uL (0.0-0.1); EOSINOPHILS # (AUTO) 0.4 10^3/uL (0.0-0.7); EOSINOPHILS % (AUTO) 7.1 %; HCT - HEMATOCRIT 42.8 % (37.0-47.0); HGB - HEMOGLOBIN 13.3 g/dL (12.0-16.0); LYMPHOCYTES # (AUTO) 1.8 10^3/uL (1.5-3.5); LYMPHOCYTES % (AUTO) 31.4 %; MEAN CORPUSCULAR HEMOGLOBIN 28.4 pg (27.0-31.0); MEAN CORPUSCULAR HGB CONC 31.1 g/dL (32.0-36.0); MEAN CORPUSCULAR VOLUME 91.3 fL (81.0-99.0); MEAN PLATELET VOLUME 10.9 fL (7.9-10.8); MONOCYTES # (AUTO) 0.4 10^3/uL (0.0-1.0); NEUTROPHILS # (AUTO) 3.1 10^3/uL (1.5-6.6); NEUTROPHILS % (AUTO) 54.2 %; PLT - PLATELET COUNT 225 10^3/uL (130-450); RED BLOOD COUNT 4.69 10^6/uL (4.20-5.40); RED CELL DISTRIBUTION WIDTH 12.8 % (12.0-15.0); WHITE BLOOD COUNT 5.8 x10^3/uL (4.8-10.8)
[2020-09-06 12:03] LABS: ALBUMIN 4.2 g/dL (3.2-5.5); ALBUMIN/GLOBULIN RATIO 1.4 (1.0-2.2); ALKALINE PHOSPHATASE 71 IU/L (42-121); ALT ALANINE AMINOTRANSFERASE 22 IU/L (10-60); AST ASPARTATE AMINOTRANSFERASE 24 IU/L (10-42); BILIRUBIN,TOTAL 0.7 mg/dL (0.2-1.0); BUN - BLOOD UREA NITROGEN 26 mg/dL (6-20); CALCIUM 9.4 mg/dL (8.5-10.3); CARBON DIOXIDE - CO2 31 mmol/L (21-32); CHLORIDE 103 mmol/L (101-111); CHOL/HDL RATIO 3.2 (<4.4); CHOLESTEROL 233 mg/dL; CREATININE 0.9 mg/dL (0.4-1.0); GFR - MDRD 61 (>89); GLUCOSE 100 mg/dL (70-100); HDL CHOLESTEROL 73 mg/dL; LDL CHOLESTEROL,CALCULATED 133 mg/dL; LDL/HDL RATIO 1.8 (<4.4); POTASSIUM 4.2 mmol/L (3.5-5.0); SODIUM 142 mmol/L (135-145); TOTAL PROTEIN 7.1 g/dL (6.7-8.2); TRIGLYCERIDES 134 mg/dL; VLDL CHOLESTEROL 27 mg/dL
== END 2020-09-06 23:59 | disposition home or self-care (01) ==
LOC: LAB.WCP 08:00
PROVIDERS: ATTEND Physician Assistant Medical
DX: E78.5 Hyperlipidemia, unspecified (principal); J06.9 Acute upper respiratory infection, unspecified; R30.0 Dysuria
CPT/HCPCS: 36415; 80053; 80061; 83721; 85025; 87086

== ENCOUNTER 2020-11-12 08:00 | Outpatient (CLI) | payer MEDICARE, OTHER ==
[2020-11-12 17:32] LABS: HCT - HEMATOCRIT 45.6 % (37.0-47.0); HGB - HEMOGLOBIN 14.2 g/dL (12.0-16.0); MEAN CORPUSCULAR HEMOGLOBIN 28.3 pg (27.0-31.0); MEAN CORPUSCULAR HGB CONC 31.1 g/dL (32.0-36.0); MEAN PLATELET VOLUME 10.9 fL (7.9-10.8); RED BLOOD COUNT 5.01 10^6/uL (4.20-5.40); RED CELL DISTRIBUTION WIDTH 12.9 % (12.0-15.0); WHITE BLOOD COUNT 6.3 x10^3/uL (4.8-10.8)
[2020-11-12 18:43] LABS: CRP - C-REACTIVE PROTEIN 1.2 mg/dL (0-1.0)
[2020-11-12 18:46] LABS: URIC ACID 3.3 mg/dL (2.6-7.2)
[2020-11-12 18:52] LABS: RHEUMATOID FACTOR NEGATIVE (Negative)
[2020-11-14 11:36] LABS: ANA SCREEN NEGATIVE (NEGATIVE)
[2020-11-14 13:01] LABS: DNA (DS) ANTIBODY 5 IU/mL
[2020-11-14 17:01] LABS: CYCLIC CITRULL PEPTIDE CCP IGG <16 UNITS
== END 2020-11-12 23:59 | disposition home or self-care (01) ==
LOC: LAB.N 08:00
PROVIDERS: ATTEND Family Medicine
DX: M79.676 Pain in unspecified toe(s) (principal)
CPT/HCPCS: 36415; 84550; 85027; 85651; 86038; 86140; 86200; 86225; 86430

== ENCOUNTER 2021-01-15 08:00 | Outpatient (CLI) | payer MEDICARE, OTHER ==
[2021-01-15 22:18] LABS: BACTERIAL VAGINOSIS DNA NEGATIVE (NEGATIVE); CANDIDA GLABRATA DNA NEGATIVE (NEGATIVE); CANDIDA GROUP DNA NEGATIVE (NEGATIVE); CANDIDA KRUSEI DNA NEGATIVE (NEGATIVE); TRICHOMONAS VAGINALIS DNA NEGATIVE (NEGATIVE)
== END 2021-01-15 23:59 ==
LOC: LAB.N 08:00
PROVIDERS: ATTEND Physician Assistant
DX: N76.0 Acute vaginitis (principal)
CPT/HCPCS: 87661; 87801

== ENCOUNTER 2021-05-05 14:13 | Emergency (ER) | payer MEDICARE, OTHER ==
--- NOTE | 2021-05-05 14:33 | ED Physician Documentation ---
PD HPI FOCAL NEURO - Stated complaint Stated Complaint: DIZZYNESS - History obtained from History obtained from: Patient - Additional information Additional information: This is a mary 81-year-old woman with dementia albeit mild and seems quite functional. She went to the urgent care today for 5 days of dizziness. States that she feels disequilibrium especially if she bends over. It does not matter whether her eyes are open or closed and it does not worsen with rotation of the head. She went to the urgent care today for evaluation of this and they noted what they thought was a 6th nerve palsy. She was sent here for further jaci luation and treatment. I asked the patient if she was having any double vision and she is not. I mentioned that they sent her here for the eye issue and she notes that she has a lazy eye and they never asked her if she had a lazy eye. Review of Systems Ten Systems: 10 systems reviewed and negative Constitutional: denies: Fever, Chills Eyes: denies: Loss of vision, Decreased vision, Photophobia, Discharge, Irritation Ears: reports: Loss of hearing (chronic). 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 HEENT: Glaucoma Psych: Depression Musculoskeletal: None Derm: None - Past Surgical History Past Surgical History: Yes HEENT: Cataracts - Present Medications Home Medications: Ambulatory Orders Medication Instructions Recorded Confirmed Cetirizine HCl [Zyrtec] 10 mg PO DAILY 10/22/12 05/05/21 Simvastatin [Zocor] 40 mg PO QPM 10/22/12 05/05/21 Zolpidem [Ambien] 5 mg PO HS 10/22/12 05/05/21 Montelukast [Singulair] 10 mg DAILY 07/16/16 05/05/21 Meloxicam, Submicronized [Vivlodex] 7.5 mg PO DAILY PRN 01/10/19 05/05/21 Sertraline HCl [Zoloft] 100 mg PO DAILY 01/10/19 05/05/21 Ascorbic Acid [Vitamin C] 500 mg ORAL DAILY 05/05/21 05/05/21 Donepezil HCl [Aricept] 10 mg PO DAILY 05/05/21 05/05/21 Loratadine [Allergy Relief] 10 mg PO DAILY 05/05/21 05/05/21 Vitamin E Acetate [Vitamin E] 400 unit PO DAILY 05/05/21 05/05/21 - Allergies Allergies/Adverse Reactions: Allergies Allergy/AdvReac Type Severity Reaction Status Date / Time iodine Allergy Respiratory Verified 05/05/21 14:33 milk Allergy Unknown Verified 05/05/21 14:33 shellfish derived Allergy Respiratory Verified 05/05/21 14:33 acetaminophen [From Percocet] AdvReac Emesis Verified 05/05/21 14:33 oxycodone HCl * AdvReac Emesis Verified 05/05/21 14:33 [From Percocet] - Social History Does the pt smoke?: No Smoking Status: Never smoker Does the pt drink ETOH?: Yes Does the pt have substance abuse?: No - Immunizations Immunizations are current?: Yes - POLST Patient has POLST: No PD ED PE NORMAL - Vitals Vital signs reviewed: Yes - General General: Alert and oriented X 3, No acute distress - HEENT HEENT: PERRL, EOMI (Not really able to elicit any specific cranial nerve palsy on extraocular movements. 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, No motor deficit, No sensory deficit, Normal speech, Other (Normal jgwkuc-vb-pnwx and enog-ww-pver testing) Eye Opening: Spontaneous Motor: Obeys Commands Verbal: Oriented GCS Score: 15 - Psych Psych: Normal mood, Normal affect Results - Vitals Vitals: Vital Signs - 24 hr 05/05/21 05/05/21 14:29 14:56 Temperature 36.2 C L Heart Rate 76 72 Respiratory 14 14 Rate Blood Pressure 145/83 H 134/77 H O2 Saturation 99 98 Oxygen O2 Source Room air - EKG (time done) 1434 Rate: Rate (enter#) (67) Rhythm: NSR [place]: Normal Intervals: Normal [place] QRS: Normal Ischemia: Normal ST segments - Labs Labs: Laboratory Tests 05/05/21 05/05/21 14:45 14:45 WBC 6.9 RBC 4.94 Hgb 14.0 Hct 43.7 MCV 88.5 MCH 28.3 MCHC 32.0 RDW 12.9 Plt Count 216 MPV 10.6 Neut # (Auto) 4.7 Lymph # (Auto) 1.7 [place] # (Auto) 0.4 Eos # (Auto) 0.1 Baso # (Auto) 0.0 Absolute Nucleated RBC 0.00 Nucleated RBC % 0.0 Sodium 140 Potassium 4.4 Chloride 102 Carbon Dioxide 28 Anion Gap 10.0 BUN 20 Creatinine 0.8 Estimated GFR (MDRD) 69 L Glucose 120 H Calcium 9.7 Magnesium 2.5 Total Bilirubin 0.4 AST 28 ALT 22 Alkaline Phosphatase 92 Total Protein 8.0 Albumin 4.2 Globulin 3.8 Albumin/Globulin Ratio 1.1 - Rads (name of study) CT angiography of the head neck Radiology: EMP read contemporaneously (Negative for acute disease, she has developmental abnormalities that are nonsignificant of the point lay [place] of [place] and degenerative disease in the neck) PD MEDICAL DECISION MAKING - ED course ED course: 81-year-old woman with nonspecific disequilibrium. Her examination is normal with the exception of a chronic lazy eye. No MRI available today. 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 Her blood work and her EKG is normal. She may benefit from MRI of the head and I emailed her primary care physician to notify her of this. Departure - Departure Disposition: 01 Home, Self Care Clinical Impression: Dizziness Condition: Good Record reviewed to determine appropriate education?: Yes Instructions: ED Dizziness UKO Comments: The cause of your dizziness is not clear. I am going to email MATTHEW Edgar and let her know about the problems you are having. I would recommend reaching out to her office midday tomorrow to arrange for follow-up and potential further testing and/or referrals. Return for new or worsening symptoms.
[2021-05-05 14:53] LABS: BASOPHILS % (AUTO) 0.4 %; EOSINOPHILS # (AUTO) 0.1 10^3/uL (0.0-0.7); EOSINOPHILS % (AUTO) 1.3 %; HCT - HEMATOCRIT 43.7 % (37.0-47.0); LYMPHOCYTES # (AUTO) 1.7 10^3/uL (1.5-3.5); LYMPHOCYTES % (AUTO) 25.2 %; MEAN CORPUSCULAR HEMOGLOBIN 28.3 pg (27.0-31.0); MEAN CORPUSCULAR VOLUME 88.5 fL (81.0-99.0); MEAN PLATELET VOLUME 10.6 fL (7.9-10.8); MONOCYTES # (AUTO) 0.4 10^3/uL (0.0-1.0); MONOCYTES % (AUTO) 5.4 %; NEUTROPHILS # (AUTO) 4.7 10^3/uL (1.5-6.6); NEUTROPHILS % (AUTO) 67.6 %; PLT - PLATELET COUNT 216 10^3/uL (130-450); RED BLOOD COUNT 4.94 10^6/uL (4.20-5.40); RED CELL DISTRIBUTION WIDTH 12.9 % (12.0-15.0); WHITE BLOOD COUNT 6.9 x10^3/uL (4.8-10.8)
[2021-05-05] MEDS ORDERED: IOVERSOL 320 100 ML VIAL IVP ONE (14:59)
[2021-05-05 15:13] LABS: ALBUMIN 4.2 g/dL (3.2-5.5); ALBUMIN/GLOBULIN RATIO 1.1 (1.0-2.2); BILIRUBIN,TOTAL 0.4 mg/dL (0.2-1.0); CALCIUM 9.7 mg/dL (8.5-10.3); CREATININE 0.8 mg/dL (0.4-1.0); MAGNESIUM 2.5 mg/dL (1.7-2.8); POTASSIUM 4.4 mmol/L (3.5-5.0)
[2021-05-05] MEDS: IOVERSOL 320 100 ML VIAL IVP ONE (15:41)
--- NOTE | 2021-05-05 15:51 | CT Report ---
PROCEDURE: ANGIO HEAD W/WO INDICATIONS: vertigo CONTRAST: IV CONTRAST: Optiray 320 ml: 80 PO CONTRAST: *NO PO CONTRAST TECHNIQUE: Precontrast 4.5 mm thick angled axial sections acquired from the foramen magnum to the vertex. Afte r the administration of intravenous contrast, 1 mm thick sections acquired through the [place] of [place] is. Postcontrast 4.5 mm thick sections then re-acquired from the foramen magnum to the vertex. 3-di mensional gueqeif-jppvfymzz-bqcpygezst (MIP) and/or volume rendering reformats were acquired of the c entral intracranial vasculature. For radiation dose reduction, the following was used: automated ex posure control, adjustment of mA and/or kV according to patient size. COMPARISON: Prior head CT examinations 10/24/2019, 07/16/2016, 12/02/2012. Correlation is made with the accompanying neck CT angiogram, 05/05/2021. Correlation is also made with prior brain MRI, 09/10/2018. FINDINGS: Image quality: Excellent. Anterior circulation: Intracranial internal carotid arteries are normal in size and flow. The flow within the paired anterior cerebral arteries is normal and symmetric. The flow within the middle cer ebral arteries is normal and symmetric. The anterior communicating artery is seen. No aneurysms are seen. Posterior circulation: Bilateral type origins of the posterior cerebral arteries can be seen, with an associated hypoplastic basilar artery. The distal right vertebral artery largely terminates i n the right posterior inferior cerebellar artery. The left before segment is within normal limits. No aneurysms are seen. CSF spaces: Ventricles are normal in size and shape. Basal cisterns are patent. No extra-axial flu id collections. Brain: No midline shift. No intracranial bleeds or masses. Tolentino-white matter interface appears int act. Skull and face: Calvarium and facial bones appear intact, without suspicious lesions. Sinuses: Visualized sinuses and mastoids are clear. IMPRESSION: No significant intracranial abnormality is seen. No intracranial hemorrhage is seen. [place] of [place] developmental anomalies are incidentally noted, which are not considered to be clini wil significant. Reviewed by: Gage Brandt MD on 05/05/2021 2:49 PM MAREN Approved by: Gage Brandt MD on 05/05/2021 2:49 PM MAREN Station ID: [id number]
--- NOTE | 2021-05-05 15:53 | CT Report ---
PROCEDURE: ANGIO NECK W INDICATIONS: vertigo CONTRAST: IV CONTRAST: Optiray 320 ml: 80 PO CONTRAST: *NO PO CONTRAST TECHNIQUE: After the administration of intravenous contrast, 1.5 mm axial sections acquired from the aortic arch to the [place] of [place]. Coronal 3-D maximum intensity projection (MIP) and/or volume rendering ref ormats were then performed. For radiation dose reduction, the following was used: automated exposur e control, adjustment of mA and/or kV according to patient size. COMPARISON: Correlation is made with the accompanying head CT angiogram, 05/06/2019. Correlation is m samir with prior carotid ultrasound, 04/12/2016. FINDINGS: Image quality: Excellent. Carotid system: The great vessels demonstrate a conventional anatomy as they arise from the aortic a rch. The origins of the common carotid arteries appear patent. The common carotid arteries demonstr ate normal calibers and courses. The bifurcation regions appear normal bilaterally. The internal ca rotid arteries demonstrate normal caliber and course. Posterior circulation: The origins of the vertebral arteries appear patent. The more superior porti ons of the vertebral arteries demonstrate normal course and caliber. The left vertebral artery is dom inant to the right. Soft tissues: Visualized neck soft tissues demonstrate no suspicious abnormalities. The thyroid is normal in size and there are no incidental findings. Bones: No suspicious bony lesions. Visualized cervical spine appears normally aligned. Relatively prominent cervical spine degenerative changes are seen, including moderate to severe disc space narr owing at C4-C5, C5-C6, and C6-C7. IMPRESSION: No hemodynamically significant stenosis can be seen within the arteries of the neck. Incidental note is made of: Relatively prominent cervical spine degenerative change The estimate of stenosis included in the report of the imaging study was calculated using the NASCET method Reviewed by: Gage Brandt MD on 05/05/2021 2:51 PM MAREN Approved by: Gage Brandt MD on 05/05/2021 2:51 PM MAREN Station ID: [id number]
[2021-05-05] MEDS: ACETAMINOPHEN 325 MG TABLET PO STA (16:21)
[2021-05-05 16:22] VITALS: BP 139/91
== END 2021-05-05 16:33 | disposition home or self-care (01) ==
LOC: ED 14:13
DX: R42 Dizziness and giddiness (principal)
CPT/HCPCS: 36415; 70496; 70498; 80053; 83735; 85025; 93005; 99284; A9270; Q9967

== ENCOUNTER 2022-06-06 08:40 | Outpatient (CLI) | payer MEDICARE, OTHER ==
[2022-06-06 12:30] LABS: BASOPHILS # (AUTO) 0.1 10^3/uL (0.0-0.1); BASOPHILS % (AUTO) 0.9 %; EOSINOPHILS # (AUTO) 0.4 10^3/uL (0.0-0.7); EOSINOPHILS % (AUTO) 7.4 %; HCT - HEMATOCRIT 44.1 % (37.0-47.0); HGB - HEMOGLOBIN 14.2 g/dL (12.0-16.0); LYMPHOCYTES # (AUTO) 1.5 10^3/uL (1.5-3.5); LYMPHOCYTES % (AUTO) 26.5 %; MEAN CORPUSCULAR HEMOGLOBIN 28.4 pg (27.0-31.0); MEAN CORPUSCULAR HGB CONC 32.2 g/dL (32.0-36.0); MEAN CORPUSCULAR VOLUME 88.2 fL (81.0-99.0); MEAN PLATELET VOLUME 11.1 fL (7.9-10.8); MONOCYTES # (AUTO) 0.5 10^3/uL (0.0-1.0); MONOCYTES % (AUTO) 8.4 %; NEUTROPHILS # (AUTO) 3.2 10^3/uL (1.5-6.6); NEUTROPHILS % (AUTO) 56.6 %; PLT - PLATELET COUNT 211 10^3/uL (130-450); RED CELL DISTRIBUTION WIDTH 12.9 % (12.0-15.0); WHITE BLOOD COUNT 5.7 x10^3/uL (4.8-10.8)
[2022-06-06 12:52] LABS: ALBUMIN 4.2 g/dL (3.2-5.5); ALBUMIN/GLOBULIN RATIO 1.4 (1.0-2.2); ALKALINE PHOSPHATASE 83 IU/L (42-121); ALT ALANINE AMINOTRANSFERASE 15 IU/L (10-60); AST ASPARTATE AMINOTRANSFERASE 18 IU/L (10-42); BILIRUBIN,TOTAL 0.5 mg/dL (0.2-1.0); BUN - BLOOD UREA NITROGEN 28 mg/dL (6-20); CALCIUM 9.3 mg/dL (8.5-10.3); CARBON DIOXIDE - CO2 30 mmol/L (21-32); CHLORIDE 105 mmol/L (101-111); CHOL/HDL RATIO 4.9 (<4.4); CHOLESTEROL 371 mg/dL; CREATININE 0.9 mg/dL (0.4-1.0); GFR - MDRD 60 (>89); GLUCOSE 114 mg/dL (70-100); HDL CHOLESTEROL 75 mg/dL; LDL CHOLESTEROL,CALCULATED 270 mg/dL; LDL/HDL RATIO 3.6 (<4.4); POTASSIUM 4.2 mmol/L (3.5-5.0); SODIUM 140 mmol/L (135-145); TOTAL PROTEIN 7.1 g/dL (6.7-8.2); TRIGLYCERIDES 130 mg/dL; VLDL CHOLESTEROL 26 mg/dL
== END 2022-06-06 08:41 | disposition home or self-care (01) ==
LOC: LAB.N 08:40
PROVIDERS: ATTEND Physician Assistant Medical
DX: E78.5 Hyperlipidemia, unspecified (principal); K21.9 Gastro-esophageal reflux disease without esophagitis
CPT/HCPCS: 36415; 80053; 80061; 83721; 85025

== ENCOUNTER 2022-06-19 12:09 | Outpatient (CLI) | payer MEDICARE, OTHER ==
--- NOTE | 2022-06-20 09:51 | Mammography Report ---
BILATERAL DIGITAL SCREENING MAMMOGRAM 3D/2D: 06/19/2022 CLINICAL: Routine screening. Comparison is made to exams dated: 04/25/2020 mammogram, 11/26/2018 mammogram, 04/28/2017 mammogram - [facility], 03/18/2016 mammogram, 03/14/2015 mammogram, and 03/13/2014 mammogram - [facility]. Both breasts are heterogeneously dense, which may obscure small masses (category c / 51-75% glandular tissue). No significant masses, calcifications, or other findings are seen in either breast. There has been no significant interval change. IMPRESSION: NEGATIVE There is no mammographic evidence of malignancy. A 1 year screening mammogram is recommended. Based on the Tyrer Cuzick model (a risk assessment model) the patients lifetime risk is 2.4% and her 10 year risk is 0.0%. According to the ACR, ACS, and NCCN guidelines, an annual breast MRI exam naheed g with mammogram is recommended if the patients lifetime risk is 20% or greater. This exam was interpreted at Station ID: [id number]. NOTE: For mammograms, a report in lay terms will be sent to the patient. Approximately 15% of breast malignancies will not be visualized mammographically. In the management of a palpable breast mass, a negative mammogram must not discourage biopsy of a clinically suspicious lesion. Electronically Signed By: Darrel justice/vinay:06/19/2022 16:08:37 letter sent: No_Letter ACR BI-RADS Category 1: Negative 3341F PARENCHYMAL PATTERN: (D) - The breast(s) demonstrate(s) heterogeneously dense fibroglandular beck awan. BI-RADS CATEGORY: (1) - 1 Mammogram [id number] 1 year screening LATERALITY: (B)
== END 2022-06-19 12:10 | disposition home or self-care (01) ==
LOC: DI.N 12:09
DX: Z12.31 Encounter for screening mammogram for malignant neoplasm of breast (principal)

== ENCOUNTER 2023-03-18 08:00 | Outpatient (CLI) | payer MEDICARE, OTHER | END 2023-03-18 23:59 | disposition home or self-care (01) | LOC: LAB.N 08:00 | PROVIDERS: ATTEND Nurse Practitioner | DX: N39.0 Urinary tract infection, site not specified (principal) | CPT/HCPCS: 87086 ==

== ENCOUNTER 2023-04-20 14:30 | Outpatient (CLI) | payer MEDICARE, OTHER | END 2023-04-20 14:45 | disposition home or self-care (01) | LOC: LAB.N 14:30 | PROVIDERS: ATTEND Registered Nurse | DX: N39.0 Urinary tract infection, site not specified (principal) | CPT/HCPCS: 87086 ==

== ENCOUNTER 2023-06-09 08:00 | Outpatient (CLI) | payer MEDICARE, OTHER | END 2023-06-09 23:59 | disposition home or self-care (01) | LOC: LAB.N 08:00 | PROVIDERS: ATTEND Specialist | DX: R30.0 Dysuria (principal); N76.0 Acute vaginitis | CPT/HCPCS: 81514; 87086 ==

== ENCOUNTER 2023-06-09 13:15 | Outpatient (CLI) | payer MEDICARE, OTHER ==
[2023-06-09 20:29] LABS: BACTERIAL VAGINOSIS DNA POSITIVE (NEGATIVE); CANDIDA GLABRATA DNA POSITIVE (NEGATIVE); CANDIDA GROUP DNA NEGATIVE (NEGATIVE); CANDIDA KRUSEI DNA NEGATIVE (NEGATIVE); TRICHOMONAS VAGINALIS DNA NEGATIVE (NEGATIVE)
== END 2023-06-09 13:30 | disposition home or self-care (01) ==
LOC: LAB.N 13:15
PROVIDERS: ATTEND Specialist
DX: N76.0 Acute vaginitis (principal)
CPT/HCPCS: 81514

== ENCOUNTER 2023-09-30 11:09 | Outpatient (CLI) | payer MEDICARE, OTHER ==
[2023-09-30 11:19] LABS: BASOPHILS % (AUTO) 0.5 %; EOSINOPHILS # (AUTO) 0.1 10^3/uL (0.0-0.7); EOSINOPHILS % (AUTO) 0.8 %; HCT - HEMATOCRIT 43.7 % (37.0-47.0); HGB - HEMOGLOBIN 13.8 g/dL (12.0-16.0); LYMPHOCYTES # (AUTO) 1.1 10^3/uL (1.5-3.5); MEAN CORPUSCULAR HEMOGLOBIN 27.9 pg (27.0-31.0); MEAN CORPUSCULAR HGB CONC 31.6 g/dL (32.0-36.0); MEAN CORPUSCULAR VOLUME 88.5 fL (81.0-99.0); MEAN PLATELET VOLUME 9.9 fL (7.9-10.8); MONOCYTES # (AUTO) 0.4 10^3/uL (0.0-1.0); MONOCYTES % (AUTO) 6.6 %; NEUTROPHILS # (AUTO) 4.5 10^3/uL (1.5-6.6); NEUTROPHILS % (AUTO) 73.8 %; PLT - PLATELET COUNT 240 10^3/uL (130-450); RED BLOOD COUNT 4.94 10^6/uL (4.20-5.40); RED CELL DISTRIBUTION WIDTH 13.1 % (12.0-15.0)
[2023-09-30 11:32] LABS: ALBUMIN 4.1 g/dL (3.2-5.5); ALBUMIN/GLOBULIN RATIO 1.4 (1.0-2.2); ALKALINE PHOSPHATASE 90 IU/L (42-121); ALT ALANINE AMINOTRANSFERASE 22 IU/L (10-60); AST ASPARTATE AMINOTRANSFERASE 22 IU/L (10-42); BILIRUBIN,TOTAL 0.5 mg/dL (0.2-1.0); BUN - BLOOD UREA NITROGEN 16 mg/dL (6-20); CALCIUM 9.7 mg/dL (8.5-10.3); CARBON DIOXIDE - CO2 30 mmol/L (21-32); CHLORIDE 103 mmol/L (101-111); CHOL/HDL RATIO 2.5 (<4.4); CHOLESTEROL 232 mg/dL; CREATININE 0.7 mg/dL (0.6-1.3); GFR - MDRD 80 (>89); GLUCOSE 128 mg/dL (74-104); HDL CHOLESTEROL 94 mg/dL; LDL CHOLESTEROL,CALCULATED 120 mg/dL; LDL/HDL RATIO 1.3 (<4.4); POTASSIUM 4.1 mmol/L (3.5-4.5); SODIUM 139 mmol/L (135-145); TOTAL PROTEIN 7.1 g/dL (6.4-8.9); TRIGLYCERIDES 91 mg/dL; VLDL CHOLESTEROL 18 mg/dL
--- NOTE | 2023-09-30 16:50 | XRAY Report ---
PROCEDURE: Foot 3+V RT INDICATIONS: RIGHT FOOT PAIN TECHNIQUE: 3 views of the foot were acquired. COMPARISON: None. FINDINGS: Bones: Minimally displaced appearance of healing second distal metatarsal fracture. No suspicious bon y lesions. First MTP fusion. Hardware is intact without evidence of hardware fracture or periprosthe tic lucency to suggest loosening. Midfoot degenerative changes are present. Soft tissues: No tibiotalar joint effusion. Achilles tendon appears normal. IMPRESSION: First MTP joint fusion. Subacute appearance of healing distal second metatarsal fracture. Reviewed by: Adilene Cali MD on 09/30/2023 4:49 PM PDT Approved by: Adilene Cali MD on 09/30/2023 4:49 PM PDT Station ID: [id number]
[2023-10-01 09:55] LABS: ESTIMATED AVERAGE GLUCOSE 120 mg/dL (70-100); HEMOGLOBIN A1c% 5.8 % (4.27-6.07)
== END 2023-09-30 11:10 | disposition home or self-care (01) ==
LOC: LAB 11:09
PROVIDERS: ATTEND Physician Assistant Medical
DX: E78.5 Hyperlipidemia, unspecified (principal); G30.9 Alzheimer's disease, unspecified; F02.80 Dementia in other diseases classified elsewhere, unspecified severity, without behavioral disturbance, psychotic disturbance, mood disturbance, and anxiety; K21.9 Gastro-esophageal reflux disease without esophagitis; R73.9 Hyperglycemia, unspecified; M79.671 Pain in right foot; S92.321D Displaced fracture of second metatarsal bone, right foot, subsequent encounter for fracture with routine healing
CPT/HCPCS: 36415; 80053; 80061; 82607; 83036; 83721; 85025